=== PATIENT | female | born 1970 | race Caucasian/White ===

== ENCOUNTER 2019-06-29 21:01 | Inpatient (IN) | payer SELFPAY ==
[~2019-06-29] VITALS: Ht 170.2 cm; Wt 76.2 kg
[2019-06-29 21:43] LABS: BILIRUBIN,URINE NEGATIVE (NEG); CLARITY,URINE CLEAR; COLOR,URINE YELLOW; NITRITE,URINE NEGATIVE (NEG); PROTEIN,URINE NEGATIVE (NEG-TRACE); UROBILINOGEN,URINE 0.2 mg/dL (0.2 mg/dL)
[2019-06-29 21:52] LABS: BASO % 1 % (0-3); EOS # 0.1 x10^3/uL (0.0-0.7); EOS % 2 % (0-3); HEMATOCRIT 33.2 % (36.0-47.0); HEMOGLOBIN 10.8 g/dL (12.0-15.5); LYMPH % 17 % (24-48); MEAN CORPUSCULAR HEMOGLOBIN 30 pg (25-35); MEAN CORPUSCULAR HGB CONC 33 g/dL (31-37); MEAN CORPUSCULAR VOLUME 92 fL (79-100); MONO # 0.4 x10^3/uL (0.0-1.1); MONO % 8 % (0-9); NEUT # 4.2 x10^3/uL (1.8-7.7); NEUT % 73 % (31-73); PLATELET COUNT 302 x10^3/uL (140-400); RED BLOOD COUNT 3.62 x10^6/uL (3.50-5.40); RED CELL DISTRIBUTION WIDTH 16.4 % (11.5-14.5); WHITE BLOOD COUNT 5.8 x10^3/uL (4.0-11.0)
[2019-06-29 21:53] LABS: BACTERIA,URINE FEW /HPF (0-FEW); RBC,URINE 0 /HPF (0-2); SQUAMOUS EPITHELIAL CELL,UR MOD /LPF
--- NOTE | 2019-06-29 21:54 | PHYS DOC ---
Past Medical History Past Medical History: GI Bleed, Other Additional Past Medical Histor: GITELMAS SYNDROME, LOW P AND LOW MG, ULCERS, POTS Past Surgical History: Cholecystectomy, , Tubal ligation Additional Past Surgical Histo: J TUBE, OVARIAN CYSTS REMOVED, ACHALASIA Alcohol Use: None Drug Use: None Adult General Chief Complaint Chief Complaint: HEMATEMESIS/VOMITING BLOOD HPI HPI 49-year-old female presents to the emergency department with complaints of hematemesis was started approximately few hours prior to her arrival. She's been vomiting amol blood. States she has had some clots. She denies any history of GI bleed in the past. She has had some achalasia surgery in 2006. As any portal hypertension history. She has underlying gettleman's syndrome. Patient is of left upper quadrant abdominal pain. She denies any diarrhea, hematochezia, melena at this time. Patient denies any fever. Nothing makes her symptoms worse, nothing makes her symptoms better. Review of Systems Review of Systems Constitutional: Denies fever or chills [] Respiratory: Denies cough or shortness of breath [] Cardiovascular: No additional information not addressed in HPI [] GI: LUQ abdominal pain, nausea, vomiting, no bloody stools or diarrhea [] : Denies dysuria or hematuria [] Musculoskeletal: Denies back pain or joint pain [] Neurologic: Denies headache, focal weakness or sensory changes [] All other systems were reviewed and found to be within normal limits, except as documented in this note. Current Medications Current Medications Current Medications Medications (Trade) Dose Ordered Sig/Albin Start Time Stop Time Status Last Admin Dose Admin Ondansetron HCl (Zofran) 4 mg 1X ONCE 06/29/19 22:30 06/29/19 22:31 DC 06/29/19 22:11 4 MG Pantoprazole Sodium (PROTONIX VIAL for IV PUSH) 80 mg 1X ONCE 06/29/19 22:30 06/29/19 22:31 DC 06/29/19 22:11 80 MG Sodium Chloride 1,000 ml @ 1,000 mls/hr 1X ONCE 06/29/19 22:00 06/29/19 22:59 DC 06/29/19 22:11 1,000 MLS/HR Allergies Allergies Physical Exam Physical Exam Constitutional: Well developed, ill-appearing, pale. [] HENT: Normocephalic, atraumatic, bilateral external ears normal, oropharynx moist, no oral exudates, nose normal. [] Eyes: PERRLA, EOMI, conjunctiva normal, no discharge. [] Cardiovascular: Tachycardia Lungs & Thorax: Bilateral breath sounds clear to auscultation [] Abdomen: Bowel sounds normal, soft, no tenderness, no masses, no pulsatile masses. [] Skin: Warm, dry, no erythema, no rash. [] Back: No tenderness, no CVA tenderness. [] Extremities: No tenderness, no edema. [] Neurologic: Alert and oriented X 3, no focal deficits noted. [] Psychologic: Affect normal, judgement normal, mood normal. [] Current Patient Data Vital Signs Vital Signs Date Time Temp Pulse Resp B/P (MAP) Pulse Ox O2 Delivery O2 Flow Rate FiO2 06/29/19 22:28 Room Air 06/29/19 22:27 92 121/76 (91) 98 06/29/19 21:19 98.2 14 98.2 Lab Values Laboratory Tests Test 06/29/19 21:36 06/29/19 21:45 06/29/19 22:30 Urine Collection Type Void Urine Color Yellow Urine Clarity Clear Urine pH 7.0 Urine Specific [place] 1.020 Urine Protein Negative mg/dL (NEG-TRACE) Urine Glucose (UA) Negative mg/dL (NEG) Urine Ketones (Stick) Negative mg/dL (NEG) Urine Blood Negative (NEG) Urine Nitrite Negative (NEG) Urine Bilirubin Negative (NEG) Urine Urobilinogen Dipstick 0.2 mg/dL (0.2 mg/dL) Urine Leukocyte Esterase Moderate (NEG) Urine RBC 0 /HPF (0-2) Urine WBC 5-10 /HPF (0-4) Urine Squamous Epithelial Cells Mod /LPF Urine Bacteria Few /HPF (0-FEW) Urine Mucus Slight /LPF White Blood Count 5.8 x10^3/uL (4.0-11.0) Red Blood Count 3.62 x10^6/uL (3.50-5.40) Hemoglobin 10.8 g/dL (12.0-15.5) L Hematocrit 33.2 % (36.0-47.0) L Mean Corpuscular Volume 92 fL (79-100) Mean Corpuscular Hemoglobin 30 pg (25-35) Mean Corpuscular Hemoglobin Concent 33 g/dL (31-37) Red Cell Distribution Width 16.4 % (11.5-14.5) H Platelet Count 302 x10^3/uL (140-400) Neutrophils (%) (Auto) 73 % (31-73) Lymphocytes (%) (Auto) 17 % (24-48) L Monocytes (%) (Auto) 8 % (0-9) Eosinophils (%) (Auto) 2 % (0-3) Basophils (%) (Auto) 1 % (0-3) Neutrophils # (Auto) 4.2 x10^3/uL (1.8-7.7) Lymphocytes # (Auto) 1.0 x10^3/uL (1.0-4.8) Monocytes # (Auto) 0.4 x10^3/uL (0.0-1.1) Eosinophils # (Auto) 0.1 x10^3/uL (0.0-0.7) Basophils # (Auto) 0.0 x10^3/uL (0.0-0.2) Sodium Level 139 mmol/L (136-145) Potassium Level 3.4 mmol/L (3.5-5.1) L Chloride Level 101 mmol/L (98-107) Carbon Dioxide Level 31 mmol/L (21-32) Anion Gap 7 (6-14) Blood Urea Nitrogen 15 mg/dL (7-20) Creatinine 0.8 mg/dL (0.6-1.0) Estimated GFR (Cockcroft-Gault) 76.9 BUN/Creatinine Ratio 19 (6-20) Glucose Level 114 mg/dL (70-99) H Calcium Level 9.0 mg/dL (8.5-10.1) Total Bilirubin 0.1 mg/dL (0.2-1.0) L Aspartate Amino Transferase (AST) 16 U/L (15-37) Alanine Aminotransferase (ALT) 18 U/L (14-59) Alkaline Phosphatase 77 U/L (46-116) Total Protein 7.0 g/dL (6.4-8.2) Albumin 3.6 g/dL (3.4-5.0) Albumin/Globulin Ratio 1.1 (1.0-1.7) Gastric Fluid Occult Blood Positive (NEG) Laboratory Tests 06/29/19 21:45 Laboratory Tests 06/29/19 21:45 Microbiology 06/29/19 Urine Culture - Final, Complete 06/29/19 Urine Culture Result 1 (GEORGI) - Final, Complete EKG EKG [] Radiology/Procedures Radiology/Procedures [facility] [address] [place] [address] IMAGING REPORT Signed PATIENT: PATRICK MORTENSEN ACCOUNT: [id number] : 1970 LOCATION: ER AGE: 49 SEX: F EXAM STATUS: REG ER ORD. PHYSICIAN: JOHNATHON CHIN MD REASON: left upper quadrant pain, active hematemesis, allergy to contrast PROCEDURE: CT ABDOMEN PELVIS WO CONTRAST Examination: CT of the abdomen pelvis without contrast HISTORY: History of left upper quadrant abdominal pain COMPARISON: None available TECHNIQUE: Axial CT images of the abdomen pelvis were performed without contrast. Coronal and sagittal reformats are performed Exposure: One or more of the following individualized dose reduction techniques were utilized for this examination: 1. Automated exposure control 2. Adjustment of the mA and/or kV according to patient size 3. Use of iterative reconstruction technique FINDINGS: The bibasilar lungs are clear. No evidence of free air identified in the abdomen. The evaluation of the solid organs is limited due to lack of IV contrast. The evaluation of bowel is limited due to lack of oral contrast. The visualized noncontrasted liver, spleen, adrenals grossly appears unremarkable. Cholecystectomy clips identified. Metallic coils and surgical clips identified in the epigastric region and within the stomach. The stomach is mildly distended with food material. The small bowel is nondilated. Feces and gas noted in the colon. There are multiple round hyperdensities identified in the bilateral kidneys with the largest measuring 2 cm in the right kidney. Urinary bladder is mildly distended. Enlarged appearing right adnexa could be enlarged right ovary measuring 4 cm. IVC filter is identified. Moderate degenerative changes lumbar spine most at L3-L4 vertebral level. IMPRESSION: 1. Enlarged appearing right adnexa probably enlarged appearing right ovary. Follow-up ultrasound pelvis can be considered. 2. Multiple round hyperdensities identified in the bilateral kidneys the largest measuring 2 cm in the right kidney could be hyperdense masses or cysts. Follow-up nonemergent ultrasound can be considered. Electronically signed by: Talon Whelan MD (06/29/2019 11:17 PM) [facility] DICTATED and SIGNED BY: TALON WHELAN MD DATE: 06/29/19 2317 [] Course & Med Decision Making Course & Med Decision Making Pertinent Labs and Imaging studies reviewed. (See chart for details) []49-year-old female presents to the emergency department with complaints of hematemesis was started approximately few hours prior to her arrival. She's been vomiting amol blood. States she has had some clots. She denies any history of GI bleed in the past. She has had some achalasia surgery in 2006. As any portal hypertension history. She has underlying gettleman's syndrome. Patient is of l eft upper quadrant abdominal pain. She denies any diarrhea, hematochezia, melena at this time. Patient denies any fever. Nothing makes her symptoms worse, nothing makes her symptoms better. Labs/imaging reviewed IVF, Zofran, Dilaudid provided in ER for acute symptoms Patient with active hematemesis Protonix bolus with drip initiated in the ER GI consult - discussed with Dr. Dan regarding patient and acute admission VS stable will plan admit to ICU given active hematemesis. CT reviewed - no acute findings appreciated however this was done without contrast given allergy Dragon Disclaimer Dragon Disclaimer This electronic medical record was generated, in whole or in part, using a voice recognition dictation system. Departure Departure Impression: Primary Impression: Acute upper GI bleed Additional Impressions: Abdominal pain Anemia Disposition: ADMITTED INPATIENT Admitting Physician: PHILL Condition: STABLE Critical Care Time Critical care time was 35 minutes exclusive of procedures. Problem Qualifiers Additional Impressions: Abdominal pain Abdominal location: left upper quadrant Qualified Codes: R10.12 - Left upper quadrant pain Anemia Anemia type: unspecified type Qualified Codes: D64.9 - Anemia, unspecified JOHNATHON CHIN MD Jun 29, 2019 21:54
[2019-06-29] MEDS ORDERED: IV NORMAL SALINE 1000ML BAG 1,000 ML IV ONE (22:00)
[2019-06-29 22:01] LABS: CREATININE 0.8 mg/dL (0.6-1.0); GFR 76.9; POTASSIUM 3.4 mmol/L (3.5-5.1)
[2019-06-29 22:06] LABS: ALBUMIN 3.6 g/dL (3.4-5.0); ALBUMIN/GLOBULIN RATIO 1.1 (1.0-1.7); TOTAL BILIRUBIN 0.1 mg/dL (0.2-1.0)
[2019-06-29] MEDS: PANTOPRAZOLE SODIUM IV DRIP 80 MG in IV NORMAL SALINE 100ML 100 ML IV SCH (22:11)
[2019-06-29] MEDS ORDERED: ONDANSETRON PF 4 MG/2 ML VIAL. IV ONE (22:30)
[2019-06-29] MEDS ORDERED: PANTOPRAZOLE IV PUSH 40 MG VIAL. IVP ONE (22:30)
[2019-06-29 22:37] LABS: GASTRIC OB PAT POSITIVE (NEG)
[2019-06-29] MEDS ORDERED: HYDROmorphone 2 MG/ML VIAL IV ONE (23:00)
--- NOTE | 2019-06-29 23:20 | RAD ---
Examination: CT of the abdomen pelvis without contrast HISTORY: History of left upper quadrant abdominal pain COMPARISON: None available TECHNIQUE: Axial CT images of the abdomen pelvis were performed without contrast. Coronal and sagittal reformats are performed Exposure: One or more of the following individualized dose reduction techniques were utilized for this examination: 1. Automated exposure control 2. Adjustment of the mA and/or kV according to patient size 3. Use of iterative reconstruction technique FINDINGS: The bibasilar lungs are clear. No evidence of free air identified in the abdomen. The evaluation of the solid organs is limited due to lack of IV contrast. The evaluation of bowel is limited due to lack of oral contrast. The visualized noncontrasted liver, spleen, adrenals grossly appears unremarkable. Cholecystectomy clips identified. Metallic coils and surgical clips identified in the epigastric region and within the stomach. The stomach is mildly distended with food material. The small bowel is nondilated. Feces and gas noted in the colon. There are multiple round hyperdensities identified in the bilateral kidneys with the largest measuring 2 cm in the right kidney. Urinary bladder is mildly distended. Enlarged appearing right adnexa could be enlarged right ovary measuring 4 cm. IVC filter is identified. Moderate degenerative changes lumbar spine most at L3-L4 vertebral level. IMPRESSION: 1. Enlarged appearing right adnexa probably enlarged appearing right ovary. Follow-up ultrasound pelvis can be considered. 2. Multiple round hyperdensities identified in the bilateral kidneys the largest measuring 2 cm in the right kidney could be hyperdense masses or cysts. Follow-up nonemergent ultrasound can be considered. Electronically signed by: Talon Whelan MD (06/29/2019 11:17 PM) [facility]
[2019-06-30] VITALS (14 sets, daily range): BP systolic 92–147; BP diastolic 55–80
[2019-06-30] MEDS ORDERED: ONDANSETRON PF 4 MG/2 ML VIAL. IV ONE (01:00)
[2019-06-30] MEDS ORDERED: HYDROmorphone 2 MG/ML VIAL IV ONE (01:00)
[2019-06-30] MEDS ORDERED: IV NORMAL SALINE 1000ML BAG 1,000 ML IV ONE (01:30)
[2019-06-30] MEDS: HYDROmorphone 2 MG/ML VIAL IV PRN ×8 (02:41→22:59)
--- NOTE | 2019-06-30 05:31 | EKG ---
[facility] [address] [place] [address] Test Date: 2019-06-29 Test Time: 22:00:36 Pat Name: PATRICK MORTENSEN Department: Room: Gender: F [employer]: : 1970 Requested By: JOHNATHON CHIN Order Number: [id number] Reading MD: Measurements Intervals [place] Rate: 101 P: 67 LA: 172 QRS: 26 QRSD: 78 T: 99 QT: 396 QTc: 514 Interpretive Statements SINUS TACHYCARDIA NON SPECIFIC T ABNORMALITY BORDERLINE ECG No previous ECG available for comparison
[2019-06-30] MEDS: ONDANSETRON PF 4 MG/2 ML VIAL. IV PRN ×3 (07:21→22:48)
[2019-06-30] MEDS ORDERED: SERT100T PO (08:44)
[2019-06-30] MEDS ORDERED: SUCR1TAB35 PO (08:44)
[2019-06-30] MEDS ORDERED: ROPI3TAB PO (08:44)
[2019-06-30] MEDS ORDERED: POTA10TA6 PO (08:44)
[2019-06-30] MEDS ORDERED: MAGN500C10 PO (08:44)
[2019-06-30] MEDS ORDERED: LEVE100020 PO (08:44)
[2019-06-30] MEDS ORDERED: FAMO-63 PO (08:44)
--- NOTE | 2019-06-30 08:53 | PDOC2 ---
PAGE HOPPER 06/30/19 0853: GI CONSULT Reason For Consult: UGIB HPI: HPI: 49 y/o female w/ extreme LUQ pain (constant - waxes and wanes in severity) since Friday and hematemesis since yesterday afternoon. Hgb 10.8 w/ BUN 15. CT as below. Similar symptoms in summer 2018 while vacationing in [place] - reports EGD w/ oozing ulcer requiring endoscopic clipping and IR coiling, also required transfusion. H/o terrible indigestion twice monthly w/ occasional vomiting, lots of belching, and terrible back pressure that makes her cry. Has been on Pepcid BID and Carafate TID for awhile (even before episode in [place]) and has "tried everything else" without good response. Also, about three years ago while traveling in [place], had what sounds like a Casandra-Bates tear. GI history also significant for achalasia w/ Heller myotomy in 2005 in [place] w/ complicated post-op course w/ weight loss of 100 pounds requiring J tube p lacement. Additional h/o pancreatitis x 3 without clear etiology. All episodes occurred after cholecystectomy. Denies dysphagia/odynophagia, diarrhea, constipation, hematochezia, and melena. Has lost ~10 pounds since bleeding episode over the summer. Had colonoscopy several years ago w/ polyps. No liver history. No NSAIDs. 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), PE (several years later - saw hematology, unclear cause), ovarian cysts, GERD, achalasia, GI bleed , tubal ligation, J tube placement, Heller myotomy, IVC filter, cholecystectomy, ovarian cyst removal FH: Family History: No pertinent hx (denies GI cancers) Social History: Smoke: No ALCOHOL: none Drugs: None ROS: GEN: Denies fevers, chills, sweats HEENT: Denies blurred vision, sore throat CV: Denies chest pain RESP: Denies shortness of air, cough GI: Per HPI : Denies hematuria, dysuria ENDO: +weight loss NEURO: Denies confusion, dizziness MSK: Denies weakness, joint pain/swelling SKIN: Denies jaundice, pruritus Vitals: Vitals: Vital Signs Date Time Temp Pulse Resp B/P (MAP) Pulse Ox O2 Delivery O2 Flow Rate FiO2 06/30/19 08:23 97.6 73 20 99 97.6 06/30/19 07:22 Room Air 06/30/19 06:53 129/64 (85) Labs: Labs: Laboratory Tests Test 06/29/19 21:36 06/29/19 21:45 06/29/19 22:30 Urine Collection Type Void Urine Color Yellow Urine Clarity Clear Urine pH 7.0 Urine Specific [place] 1.020 Urine Protein Negative mg/dL (NEG-TRACE) Urine Glucose (UA) Negative mg/dL (NEG) Urine Ketones (Stick) Negative mg/dL (NEG) Urine Blood Negative (NEG) Urine Nitrite Negative (NEG) Urine Bilirubin Negative (NEG) Urine Urobilinogen Dipstick 0.2 mg/dL (0.2 mg/dL) Urine Leukocyte Esterase Moderate (NEG) Urine RBC 0 /HPF (0-2) Urine WBC 5-10 /HPF (0-4) Urine Squamous Epithelial Cells Mod /LPF Urine Bacteria Few /HPF (0-FEW) Urine Mucus Slight /LPF White Blood Count 5.8 x10^3/uL (4.0-11.0) Red Blood Count 3.62 x10^6/uL (3.50-5.40) Hemoglobin 10.8 g/dL (12.0-15.5) Hematocrit 33.2 % (36.0-47.0) Mean Corpuscular Volume 92 fL (79-100) Mean Corpuscular Hemoglobin 30 pg (25-35) Mean Corpuscular Hemoglobin Concent 33 g/dL (31-37) Red Cell Distribution Width 16.4 % (11.5-14.5) Platelet Count 302 x10^3/uL (140-400) Neutrophils (%) (Auto) 73 % (31-73) Lymphocytes (%) (Auto) 17 % (24-48) Monocytes (%) (Auto) 8 % (0-9) Eosinophils (%) (Auto) 2 % (0-3) Basophils (%) (Auto) 1 % (0-3) Neutrophils # (Auto) 4.2 x10^3/uL (1.8-7.7) Lymphocytes # (Auto) 1.0 x10^3/uL (1.0-4.8) Monocytes # (Auto) 0.4 x10^3/uL (0.0-1.1) Eosinophils # (Auto) 0.1 x10^3/uL (0.0-0.7) Basophils # (Auto) 0.0 x10^3/uL (0.0-0.2) Sodium Level 139 mmol/L (136-145) Potassium Level 3.4 mmol/L (3.5-5.1) Chloride Level 101 mmol/L (98-107) Carbon Dioxide Level 31 mmol/L (21-32) Anion Gap 7 (6-14) Blood Urea Nitrogen 15 mg/dL (7-20) Creatinine 0.8 mg/dL (0.6-1.0) Estimated GFR (Cockcroft-Gault) 76.9 BUN/Creatinine Ratio 19 (6-20) Glucose Level 114 mg/dL (70-99) Calcium Level 9.0 mg/dL (8.5-10.1) Total Bilirubin 0.1 mg/dL (0.2-1.0) Aspartate Amino Transf (AST/SGOT) 16 U/L (15-37) Alanine Aminotransferase (ALT/SGPT) 18 U/L (14-59) Alkaline Phosphatase 77 U/L (46-116) Total Protein 7.0 g/dL (6.4-8.2) Albumin 3.6 g/dL (3.4-5.0) Albumin/Globulin Ratio 1.1 (1.0-1.7) Gastric Fluid Occult Blood Positive (NEG) Allergies: Coded Allergies: Iodinated Contrast Media (Verified Allergy, Severe, 06/30/19) NSAIDS (Non-Steroidal Anti-Inflamma (Verified Allergy, Intermediate, 06/30/19) Sulfa (Sulfonamide Antibiotics) (Verified Allergy, Intermediate, 06/30/19) adhesive (Verified Allergy, Intermediate, 06/30/19) ketorolac (Verified Allergy, Intermediate, 06/30/19) metoclopramide (Verified Allergy, Intermediate, 06/30/19) morphine (Verified Allergy, Intermediate, 06/30/19) prochlorperazine (Verified Allergy, Intermediate, 06/30/19) Medications: Current Medications Medications (Trade) Dose Ordered Sig/Albin Route PRN Reason Start Time Stop Time Status Last Admin Dose Admin Sodium Chloride 1,000 ml @ 1,000 mls/hr 1X ONCE IV 06/29/19 22:00 06/29/19 22:59 DC 06/29/19 22:11 Pantoprazole Sodium 80 mg/ Sodium Chloride 100 ml @ 10 mls/hr Q10H IV 06/29/19 23:00 06/29/19 22:11 Pantoprazole Sodium (PROTONIX VIAL for IV PUSH) 80 mg 1X ONCE IVP 06/29/19 22:30 06/29/19 22:31 DC 06/29/19 22:11 Ondansetron HCl (Zofran) 4 mg 1X ONCE IV 06/29/19 22:30 06/29/19 22:31 DC 06/29/19 22:11 Hydromorphone HCl (Dilaudid) 1 mg 1X ONCE IV 06/29/19 23:00 06/29/19 23:01 DC 06/29/19 22:28 Hydromorphone HCl (Dilaudid) 1 mg 1X ONCE IV 06/30/19 01:00 06/30/19 01:01 DC 06/30/19 00:33 Ondansetron HCl (Zofran) 4 mg 1X ONCE IV 06/30/19 01:00 06/30/19 01:01 DC 06/30/19 00:33 Ondansetron HCl (Zofran) 4 mg PRN Q8HRS PRN IV NAUSEA/VOMITING 1ST CHOICE 06/30/19 01:00 07/01/19 00:59 06/30/19 07:21 Sodium Chloride 1,000 ml @ 100 mls/hr 1X ONCE IV 06/30/19 01:30 06/30/19 11:29 06/30/19 01:30 Hydromorphone HCl (Dilaudid) 1 mg PRN Q4HRS PRN IV SEVERE PAIN 7-10 06/30/19 01:15 06/30/19 07:22 Imaging: Imaging: CT A/P w/o contrast FINDINGS: The bibasilar lungs are clear. No evidence of free air identified in the abdomen. The evaluation of the solid organs is limited due to lack of IV contrast. The evaluation of bowel is limited due to lack of oral contrast. The visualized noncontrasted liver, spleen, adrenals grossly appears unremarkable. Cholecystectomy clips identified. Metallic coils and surgical clips identified in the epigastric region and within the stomach. The stomach is mildly distended with food material. The small bowel is nondilated. Feces and gas noted in the colon. There are multiple round hyperdensities identified in the bilateral kidneys with the largest measuring 2 cm in the right kidney. Urinary bladder is mildly distended. Enlarged appearing right adnexa could be enlarged right ovary measuring 4 cm. IVC filter is identified. Moderate degenerative changes lumbar spine most at L3- L4 vertebral level. IMPRESSION: 1. Enlarged appearing right adnexa probably enlarged appearing right ovary. Follow-up ultrasound pelvis can be considered. 2. Multiple round hyperdensities identified in the bilateral kidneys the largest measuring 2 cm in the right kidney could be hyperdense masses or cysts. Follow- up nonemergent ultrasound can be considered. PE: GEN: NAD HEENT: Atraumatic, PERRL LUNGS: CTAB HEART: RRR ABD: NABS, S/ND, epigastric to LUQ tenderness under ribs EXTREMITY: No edema SKIN: No rashes, no jaundice NEURO/PSYCH: A & O 3 A/P: A/P: Hematemesis H/o UGI bleed requiring endotherapy and IR coiling GERD H/o achalasia s/p Heller myotomy, h/o J tube placement/removal CRC screen, h/o polyps - UTD S/p cholecystectomy H/o pancreatitis - unclear etiology -- Plans for EGD this morning. Agree w/ PPI. Additional recs pending. WILLARD KHAN MD 06/30/19 0920: PAGE HOPPER Jun 30, 2019 08:53 WILLARD KHAN MD Jun 30, 2019 09:20
[2019-06-30] MEDS ORDERED: PROPOFOL 20 ML IV ONE (09:13)
--- NOTE | 2019-06-30 09:44 | PDOC1 ---
History and Physical Date of Admission Date of Admission DATE: 06/30/19 TIME: 09:42 Identification/Chief Complaint Chief Complaint 49 yr old female from [facility], VISITING HER presented to the emergency department with complaints of hematemesis was started approximately few hours prior to her arrival. She's been vomiting amol blood. States she has had some clots. PAIN HAS BEEN WORSE X 1 WEEK, achalasia surgery in 2006. As any portal hypertension history. Patient is of left upper quadrant abdominal pain. She denies any diarrhea, hematochezia, melena at this time. Patient denies any fever. ADMITTED TO ICU Enlarged appearing right adnexa could be enlarged right ovary measuring 4 cm. 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), PE FH: Family History: No pertinent hx (denies GI cancers) Social History: Smoke: No ALCOHOL: none Drugs: None Family History Family History: Hypertension Social History Smoke: No ALCOHOL: none Drugs: None Current Medications Current Medications Current Medications Sodium Chloride 1,000 ml @ 1,000 mls/hr 1X ONCE IV Last administered on 06/29/19at 22:11; Start 06/29/19 at 22:00; Stop 06/29/19 at 22:59; Status DC Pantoprazole Sodium 80 mg/ Sodium Chloride 100 ml @ 10 mls/hr Q10H IV Last administered on 06/29/19at 22:11; Start 06/29/19 at 23:00 Pantoprazole Sodium (PROTONIX VIAL for IV PUSH) 80 mg 1X ONCE IVP Last administered on 06/29/19at 22:11; Start 06/29/19 at 22:30; Stop 06/29/19 at 22:31; Status DC Ondansetron HCl (Zofran) 4 mg 1X ONCE IV Last administered on 06/29/19at 22:11; Start 06/29/19 at 22:30; Stop 06/29/19 at 22:31; Status DC Hydromorphone HCl (Dilaudid) 1 mg 1X ONCE IV Last administered on 06/29/19at 22:28; Start 06/29/19 at 23:00; Stop 06/29/19 at 23:01; Status DC Hydromorphone HCl (Dilaudid) 1 mg 1X ONCE IV Last administered on 06/30/19at 00:33; Start 06/30/19 at 01:00; Stop 06/30/19 at 01:01; Status DC Ondansetron HCl (Zofran) 4 mg 1X ONCE IV Last administered on 06/30/19at 00:33; Start 06/30/19 at 01:00; Stop 06/30/19 at 01:01; Status DC Ondansetron HCl (Zofran) 4 mg PRN Q8HRS PRN IV NAUSEA/VOMITING 1ST CHOICE Last administered on 06/30/19at 07:21; Start 06/30/19 at 01:00; Stop 07/01/19 at 00:59 Sodium Chloride 1,000 ml @ 100 mls/hr 1X ONCE IV Last administered on 06/30/19at 01:30; Start 06/30/19 at 01:30; Stop 06/30/19 at 11:29 Hydromorphone HCl (Dilaudid) 1 mg PRN Q4HRS PRN IV SEVERE PAIN 7-10 Last administered on 06/30/19at 07:22; Start 06/30/19 at 01:15 Propofol 20 ml @ As Directed STK-MED ONCE IV ; Start 06/30/19 at 09:13; Stop 06/30/19 at 09:14; Status DC Active Scripts Active Reported Zoloft (Sertraline Hcl) 100 Mg Tablet 150 Mg PO DAILY Requip (Ropinirole Hcl) 3 Mg Tablet 2 Mg PO TID Carafate (Sucralfate) 1 Gm Tablet 1 Gm PO TID Pepcid (Famotidine) 20 Mg Tablet 20 Mg PO BID Keppra (Levetiracetam) 1,000 Mg Tablet 1,000 Mg PO BID Magnesium (Magnesium Oxide) 500 Mg Capsule 800 Mg PO TID Klor-Con 10 (Potassium Chloride) 10 Meq Tablet.er 40 Meq PO BID Allergies Allergies: Coded Allergies: Iodinated Contrast Media (Verified Allergy, Severe, 06/30/19) NSAIDS (Non-Steroidal Anti-Inflamma (Verified Allergy, Intermediate, 06/30/19) Sulfa (Sulfonamide Antibiotics) (Verified Allergy, Intermediate, 06/30/19) adhesive (Verified Allergy, Intermediate, 06/30/19) ketorolac (Verified Allergy, Intermediate, 06/30/19) metoclopramide (Verified Allergy, Intermediate, 06/30/19) morphine (Verified Allergy, Intermediate, 06/30/19) prochlorperazine (Verified Allergy, Intermediate, 06/30/19) ROS Review of System Review of Systems Review of Systems Constitutional: Denies fever or chills [] Respiratory: Denies cough or shortness of breath [] Cardiovascular: No additional information not addressed in HPI [] GI: LUQ abdominal pain, nausea, vomiting, no bloody stools or diarrhea [] : Denies dysuria or hematuria [] Musculoskeletal: Denies back pain or joint pain [] Neurologic: Denies headache, focal weakness or sensory changes [] 14 PT systems were reviewed and found to be within normal limits, except as documented Respiratory: No: Cough, Hemoptysis, Orthopnea, Pleuritic Pain, Shortness of breath, SOB with excertion, Sputum Changes, Stridor, Tachypnea, Wheezing, Other Cardiovascular: No Chest Pain, No Palpitations, No Orthopnea, No Paroxysmal Noc. Dyspnea, No Edema, No Lt Headedness, No Other Gastrointestinal: Yes Vomiting, Yes Abdominal Pain Physical Exam Physical Exam Physical Exam Physical Exam Constitutional: Well developed, ill-appearing, pale. [] HENT: Normocephalic, atraumatic, bilateral external ears normal, oropharynx moist, no oral exudates, nose normal. [] Eyes: PERRLA, EOMI, conjunctiva normal, no discharge. [] Cardiovascular: Tachycardia Lungs & Thorax: Bilateral breath sounds clear to auscultation [] Abdomen: Bowel sounds normal, soft, no tenderness, no masses, no pulsatile masses. [] Skin: Warm, dry, no erythema, no rash. [] Back: No tenderness, no CVA tenderness. [] Extremities: No tenderness, no edema. [] Neurologic: Alert and oriented X 3, no focal deficits noted. [] Psychologic: Affect normal, judgement normal, mood normal. [] General: Alert, Oriented X3, Cooperative, moderate distress HEENT: Atraumatic, EOMI Lungs: Clear to auscultation, Normal air movement Heart: RRR, no gallops Breasts: Not examined Abdomen: Other (TENDER WITHOUT REBOUND ) Rectal Exam: not examined Extremities: No cyanosis Neuro: Normal speech, Cranial nerves 3-12 NL Psych/Mental Status: Mental status NL, Mood NL Vitals Vitals Vital Signs Date Time Temp Pulse Resp B/P (MAP) Pulse Ox O2 Delivery O2 Flow Rate FiO2 06/30/19 09:37 97.6 79 16 98/64 96 Nasal Cannula 97.6 Labs Labs Laboratory Tests Test 06/29/19 21:36 06/29/19 21:45 06/29/19 22:30 Urine Collection Type Void Urine Color Yellow Urine Clarity Clear Urine pH 7.0 Urine Specific [place] 1.020 Urine Protein Negative mg/dL (NEG-TRACE) Urine Glucose (UA) Negative mg/dL (NEG) Urine Ketones (Stick) Negative mg/dL (NEG) Urine Blood Negative (NEG) Urine Nitrite Negative (NEG) Urine Bilirubin Negative (NEG) Urine Urobilinogen Dipstick 0.2 mg/dL (0.2 mg/dL) Urine Leukocyte Esterase Moderate (NEG) Urine RBC 0 /HPF (0-2) Urine WBC 5-10 /HPF (0-4) Urine Squamous Epithelial Cells Mod /LPF Urine Bacteria Few /HPF (0-FEW) Urine Mucus Slight /LPF White Blood Count 5.8 x10^3/uL (4.0-11.0) Red Blood Count 3.62 x10^6/uL (3.50-5.40) Hemoglobin 10.8 g/dL (12.0-15.5) Hematocrit 33.2 % (36.0-47.0) Mean Corpuscular Volume 92 fL (79-100) Mean Corpuscular Hemoglobin 30 pg (25-35) Mean Corpuscular Hemoglobin Concent 33 g/dL (31-37) Red Cell Distribution Width 16.4 % (11.5-14.5) Platelet Count 302 x10^3/uL (140-400) Neutrophils (%) (Auto) 73 % (31-73) Lymphocytes (%) (Auto) 17 % (24-48) Monocytes (%) (Auto) 8 % (0-9) Eosinophils (%) (Auto) 2 % (0-3) Basophils (%) (Auto) 1 % (0-3) Neutrophils # (Auto) 4.2 x10^3/uL (1.8-7.7) Lymphocytes # (Auto) 1.0 x10^3/uL (1.0-4.8) Monocytes # (Auto) 0.4 x10^3/uL (0.0-1.1) Eosinophils # (Auto) 0.1 x10^3/uL (0.0-0.7) Basophils # (Auto) 0.0 x10^3/uL (0.0-0.2) Sodium Level 139 mmol/L (136-145) Potassium Level 3.4 mmol/L (3.5-5.1) Chloride Level 101 mmol/L (98-107) Carbon Dioxide Level 31 mmol/L (21-32) Anion Gap 7 (6-14) Blood Urea Nitrogen 15 mg/dL (7-20) Creatinine 0.8 mg/dL (0.6-1.0) Estimated GFR (Cockcroft-Gault) 76.9 BUN/Creatinine Ratio 19 (6-20) Glucose Level 114 mg/dL (70-99) Calcium Level 9.0 mg/dL (8.5-10.1) Total Bilirubin 0.1 mg/dL (0.2-1.0) Aspartate Amino Transf (AST/SGOT) 16 U/L (15-37) Alanine Aminotransferase (ALT/SGPT) 18 U/L (14-59) Alkaline Phosphatase 77 U/L (46-116) Total Protein 7.0 g/dL (6.4-8.2) Albumin 3.6 g/dL (3.4-5.0) Albumin/Globulin Ratio 1.1 (1.0-1.7) Gastric Fluid Occult Blood Positive (NEG) Laboratory Tests Test 06/29/19 21:36 06/29/19 21:45 06/29/19 22:30 Urine Collection Type Void Urine Color Yellow Urine Clarity Clear Urine pH 7.0 Urine Specific [place] 1.020 Urine Protein Negative mg/dL (NEG-TRACE) Urine Glucose (UA) Negative mg/dL (NEG) Urine Ketones (Stick) Negative mg/dL (NEG) Urine Blood Negative (NEG) Urine Nitrite Negative (NEG) Urine Bilirubin Negative (NEG) Urine Urobilinogen Dipstick 0.2 mg/dL (0.2 mg/dL) Urine Leukocyte Esterase Moderate (NEG) Urine RBC 0 /HPF (0-2) Urine WBC 5-10 /HPF (0-4) Urine Squamous Epithelial Cells Mod /LPF Urine Bacteria Few /HPF (0-FEW) Urine Mucus Slight /LPF White Blood Count 5.8 x10^3/uL (4.0-11.0) Red Blood Count 3.62 x10^6/uL (3.50-5.40) Hemoglobin 10.8 g/dL (12.0-15.5) Hematocrit 33.2 % (36.0-47.0) Mean Corpuscular Volume 92 fL (79-100) Mean Corpuscular Hemoglobin 30 pg (25-35) Mean Corpuscular Hemoglobin Concent 33 g/dL (31-37) Red Cell Distribution Width 16.4 % (11.5-14.5) Platelet Count 302 x10^3/uL (140-400) Neutrophils (%) (Auto) 73 % (31-73) Lymphocytes (%) (Auto) 17 % (24-48) Monocytes (%) (Auto) 8 % (0-9) Eosinophils (%) (Auto) 2 % (0-3) Basophils (%) (Auto) 1 % (0-3) Neutrophils # (Auto) 4.2 x10^3/uL (1.8-7.7) Lymphocytes # (Auto) 1.0 x10^3/uL (1.0-4.8) Monocytes # (Auto) 0.4 x10^3/uL (0.0-1.1) Eosinophils # (Auto) 0.1 x10^3/uL (0.0-0.7) Basophils # (Auto) 0.0 x10^3/uL (0.0-0.2) Sodium Level 139 mmol/L (136-145) Potassium Level 3.4 mmol/L (3.5-5.1) Chloride Level 101 mmol/L (98-107) Carbon Dioxide Level 31 mmol/L (21-32) Anion Gap 7 (6-14) Blood Urea Nitrogen 15 mg/dL (7-20) Creatinine 0.8 mg/dL (0.6-1.0) Estimated GFR (Cockcroft-Gault) 76.9 BUN/Creatinine Ratio 19 (6-20) Glucose Level 114 mg/dL (70-99) Calcium Level 9.0 mg/dL (8.5-10.1) Total Bilirubin 0.1 mg/dL (0.2-1.0) Aspartate Amino Transf (AST/SGOT) 16 U/L (15-37) Alanine Aminotransferase (ALT/SGPT) 18 U/L (14-59) Alkaline Phosphatase 77 U/L (46-116) Total Protein 7.0 g/dL (6.4-8.2) Albumin 3.6 g/dL (3.4-5.0) Albumin/Globulin Ratio 1.1 (1.0-1.7) Gastric Fluid Occult Blood Positive (NEG) Images Images Signed PATIENT: PATRICK MORTENSEN ACCOUNT: [id number] : 1970 LOCATION: ER AGE: 49 SEX: F EXAM STATUS: REG ER ORD. PHYSICIAN: JOHNATHON CHIN MD REASON: left upper quadrant pain, active hematemesis, allergy to contrast PROCEDURE: CT ABDOMEN PELVIS WO CONTRAST Examination: CT of the abdomen pelvis without contrast HISTORY: History of left upper quadrant abdominal pain COMPARISON: None available TECHNIQUE: Axial CT images of the abdomen pelvis were performed without contrast. Coronal and sagittal reformats are performed Exposure: One or more of the following individualized dose reduction techniques were utilized for this examination: 1. Automated exposure control 2. Adjustment of the mA and/or kV according to patient size 3. Use of iterative reconstruction technique FINDINGS: The bibasilar lungs are clear. No evidence of free air identified in the abdomen. The evaluation of the solid organs is limited due to lack of IV contrast. The evaluation of bowel is limited due to lack of oral contrast. The visualized noncontrasted liver, spleen, adrenals grossly appears unremarkable. Cholecystectomy clips identified. Metallic coils and surgical clips identified in the epigastric region and within the stomach. The stomach is mildly distended with food material. The small bowel is nondilated. Feces and gas noted in the colon. There are multiple round hyperdensities identified in the bilateral kidneys with the largest measuring 2 cm in the right kidney. Urinary bladder is mildly distended. Enlarged appearing right adnexa could be enlarged right ovary measuring 4 cm. IVC filter is identified. Moderate degenerative changes lumbar spine most at L3-L4 vertebral level. IMPRESSION: 1. Enlarged appearing right adnexa probably enlarged appearing right ovary. Follow-up ultrasound pelvis can be considered. 2. Multiple round hyperdensities identified in the bilateral kidneys the largest measuring 2 cm in the right kidney could be hyperdense masses or cysts. Follow-up nonemergent ultrasound can be considered. Electronically signed by: Talon Whelan MD (06/29/2019 11:17 PM) [facility] DICTATED and SIGNED BY: TALON WHELAN MD DATE: 06/29/19 9561 VTE Prophylaxis Ordered VTE Prophylaxis Devices: Yes VTE Pharmacological Prophylaxi: Contraindicated Assessment/Plan Assessment/Plan IMPRESSION: acute upper gi bleed hx 2019 EGD w/ oozing ulcer requiring endoscopic clipping and IR coiling, Enlarged appearing right adnexa probably enlarged appearing right ovary IE .,Enlarged appearing right adnexa could be enlarged right ovary measuring 4 cm.. Follow-up ultrasound pelvis MAY BE USEFUL Gitelman syndrome PAST HX OVARIAN CYSTS REMOVED, ACHALASIA plan post-op dx carida ulcer with prior endo-clips in gastric cardia embolization coil eroding into lumen as well Plan surgery and IR consults for definitive therapy if re-bleeds serial h/h Q 6 HRS MEDICAL ANTHROPOLOGIST CONSULT IV PROTONIX DRIP gi following EGD DONE ICU BED HOME MEDS SCD'S PCXR EKG 35 MIN CC TIME JOHANNE TALBOT MD Jun 30, 2019 09:44
--- NOTE | 2019-06-30 09:45 | PDOC4 ---
Operative Note Operative Note EGD Meds propofol per anesthesia Pre-op dx hematemesis post-op dx carida ulcer with prior endo-clips in gastric cardia embolization coil eroding into lumen as well Plan surgery and IR consults for definitive therapy if rebleeds WILLARD KHAN MD Jun 30, 2019 09:45
[2019-06-30] MEDS ORDERED: IV NORMAL SALINE 1000ML BAG 1,000 ML IV SCH (10:45)
[2019-06-30] MEDS ORDERED: 0.9 % SODIUM CHLORIDE 10 ML DISP.SYRIN. IV PRN (11:15)
[2019-06-30] MEDS ORDERED: BISACODYL 10 MG SUPP.RECT. PR PRN (11:15)
[2019-06-30] MEDS ORDERED: ZOLPIDEM 5 MG TABLET. PO PRN (11:15)
[2019-06-30] MEDS ORDERED: ACETAMINOPHEN 325 MG TABLET. PO PRN (11:15)
[2019-06-30] MEDS ORDERED: fentaNYL PF VIAL 100 MCG/2 ML VIAL IV PRN (11:15)
[2019-06-30] MEDS: SUCRALFATE 1 GM TABLET. PO SCH ×2 (11:44→16:56)
[2019-06-30] MEDS: SERTRALINE 50 MG TABLET. PO SCH (11:45)
[2019-06-30] MEDS: POTASSIUM CHLORIDE 10 MEQ TABLET.ER. PO SCH ×2 (11:45→21:00)
[2019-06-30] MEDS: PANTOPRAZOLE SODIUM IV DRIP 80 MG in IV NORMAL SALINE 100ML 100 ML IV SCH ×2 (11:48→21:21)
[2019-06-30] MEDS: cefTRIAXone IV Push 1 GM VIAL. IVP SCH (11:48)
[2019-06-30] MEDS ORDERED: levETIRAcetam 500 MG TABLET PO SCH (12:00)
[2019-06-30] MEDS ORDERED: DIPHENHYDRAMINE/ZINC ACETATE 2%/0.1% TOPICAL CREAM 28GM TUBE. TP PRN (12:30)
[2019-06-30] MEDS: levETIRAcetam 1,000 MG in IV DEXTROSE 5% 100ML 100 ML IV SCH ×2 (13:04→21:20)
--- NOTE | 2019-06-30 13:26 | PDOC ---
Provider Note Provider Note IR NOTE Consulted for upper GI bleed. Per discussion with GI: Endoscopy today showed no active bleed, but clips from prior endoscopy at a gastric cardia ulcer. Coils eroding into gastric mucosa also noted. Bleeding was felt to most likely be recurrent from previously treated lesion. CT wo contrast shows what appears to be left gastric coil embolization. This implies that this was the source of bleeding in the past, treated by outside IR. If re-bleeding occurs, the usefulness of endovascular intervention in this setting is significantly diminished due to prior LGA embo. Would consider endoscopic or surgical management, but will of course be available as needed. FRANKIE PHILLIP MD Jun 30, 2019 13:26
[2019-06-30] MEDS: diphenhydrAMINE 50 MG/ML VIAL IVP PRN ×2 (13:33→21:11)
[2019-06-30 13:35] LABS: HEMATOCRIT 27.9 % (36.0-47.0); HEMOGLOBIN 9.1 g/dL (12.0-15.5); RED BLOOD COUNT 3.04 x10^6/uL (3.50-5.40); RED CELL DISTRIBUTION WIDTH 16.5 % (11.5-14.5); WHITE BLOOD COUNT 3.5 x10^3/uL (4.0-11.0)
--- NOTE | 2019-06-30 14:00 | PDOC2 ---
CONSULT Date of Consult Date of Consult DATE: 06/30/19 TIME: 13:57 History of Present Illness Reason for Visit: The patient is a 49 year old female with a prior history of gastric ulcers, normally lives in [facility]. She was driving through but came to the ER due to vomiting blood which started yesterday. She does note some LUQ abdominal pain starting then as well. She states that she had a prior bleeding ulcer treated with EGD and clip placement. She denies having an IR embolization procedure. Past Medical History Past Medical History Gitelman's syndrome, gastric ulcers, achalasia Past Surgical History Past Surgical History Csection, tubal, heller myotomy, prior partial gastrectomy, cholecystectomy Family History Family History: Hypertension Social History No ALCOHOL: none Drugs: None Current Medications Current Medications Current Medications Sodium Chloride 1,000 ml @ 1,000 mls/hr 1X ONCE IV Last administered on 06/29/19at 22:11; Start 06/29/19 at 22:00; Stop 06/29/19 at 22:59; Status DC Pantoprazole Sodium 80 mg/ Sodium Chloride 100 ml @ 10 mls/hr Q10H IV Last administered on 06/30/19at 11:48; Start 06/29/19 at 23:00 Pantoprazole Sodium (PROTONIX VIAL for IV PUSH) 80 mg 1X ONCE IVP Last administered on 06/29/19at 22:11; Start 06/29/19 at 22:30; Stop 06/29/19 at 22:31; Status DC Ondansetron HCl (Zofran) 4 mg 1X ONCE IV Last administered on 06/29/19at 22:11; Start 06/29/19 at 22:30; Stop 06/29/19 at 22:31; Status DC Hydromorphone HCl (Dilaudid) 1 mg 1X ONCE IV Last administered on 06/29/19at 22:28; Start 06/29/19 at 23:00; Stop 06/29/19 at 23:01; Status DC Hydromorphone HCl (Dilaudid) 1 mg 1X ONCE IV Last administered on 06/30/19at 00:33; Start 06/30/19 at 01:00; Stop 06/30/19 at 01:01; Status DC Ondansetron HCl (Zofran) 4 mg 1X ONCE IV Last administered on 06/30/19at 00:33; Start 06/30/19 at 01:00; Stop 06/30/19 at 01:01; Status DC Ondansetron HCl (Zofran) 4 mg PRN Q8HRS PRN IV NAUSEA/VOMITING 1ST CHOICE Last administered on 06/30/19at 07:21; Start 06/30/19 at 01:00; Stop 07/01/19 at 00:59 Sodium Chloride 1,000 ml @ 100 mls/hr 1X ONCE IV Last administered on 06/30/19at 01:30; Start 06/30/19 at 01:30; Stop 06/30/19 at 11:29; Status DC Hydromorphone HCl (Dilaudid) 1 mg PRN Q4HRS PRN IV SEVERE PAIN 7-10 Last administered on 06/30/19at 11:08; Start 06/30/19 at 01:15; Stop 06/30/19 at 13:26; Status DC Propofol 20 ml @ As Directed STK-MED ONCE IV ; Start 06/30/19 at 09:13; Stop 06/30/19 at 09:14; Status DC Sodium Chloride 1,000 ml @ 75 mls/hr [id number] IV Last administered on 06/30/19at 11:08; Start 06/30/19 at 10:45; Stop 06/30/19 at 11:21; Status DC Sucralfate (Carafate) 1 gm TIDBFRMEAL PO ; Start 06/30/19 at 11:30 Levetiracetam (Keppra) 1,000 mg BID PO ; Start 06/30/19 at 12:00; Status Cancel Magnesium Oxide (Magnesium Oxide) 800 mg TID PO ; Start 07/01/19 at 09:00 Potassium Chloride (Klor-Con) 40 meq BID PO ; Start 06/30/19 at 12:00 Ropinirole HCl (Requip) 2 mg TID PO ; Start 06/30/19 at 14:00 Sertraline HCl (Zoloft) 150 mg DAILY PO ; Start 06/30/19 at 12:00 Acetaminophen (Tylenol) 650 mg Q6H PRN PO Headaches, Temp > 101.5'; Start at 11:15 Lorazepam (Ativan Inj) 0.5 mg PRN Q6HRS PRN IV ANXIETY / AGITATION; Start 06/30/19 at 11:15 Ondansetron HCl (Zofran) 4 mg PRN Q6HRS PRN IV NAUSEA/VOMITING; Start 06/30/19 at 11:15 Zolpidem Tartrate (Ambien) 5 mg PRN QHS PRN PO INSOMNIA, MAY REPEAT IN 1HR; Start 06/30/19 at 11:15 Info (Icu Electrolyte Protocol) 1 ea DAILY MC ; Start 07/01/19 at 09:00 Sodium Chloride (Normal Saline Flush) 3 ml QSHIFT PRN IV AFTER MEDS AND BLOOD DRAWS; Start 06/30/19 at 11:15 Potassium Chloride/Sodium Chloride 1,000 ml @ 100 mls/hr Q10H IV Last administered on 06/30/19at 11:48; Start 06/30/19 at 11:04 Fentanyl Citrate (Fentanyl 2ml Vial) 50 mcg PRN Q1HR PRN IV SEVERE PAIN 7-10; Start 06/30/19 at 11:15 Docusate Sodium (Colace) 100 mg BID PO ; Start 06/30/19 at 21:00 Bisacodyl (Dulcolax Supp) 10 mg PRN DAILY PRN DE CONSTIPATION; Start 06/30/19 at 11:15 Ceftriaxone Sodium (Rocephin) 1 gm Q24H IVP Last administered on 06/30/19at 11:48; Start 06/30/19 at 12:00 Levetiracetam 1000 mg/Dextrose 110 ml @ 440 mls/hr Q12HR IV Last administered on 06/30/19at 13:04; Start 06/30/19 at 12:00 Zinc Acetate/ Diphenhydramine (Benadryl Topical) 1 kumar PRN QID PRN TP ITCHING; Start 06/30/19 at 12:30; Stop 06/30/19 at 13:26; Status DC Hydromorphone HCl (Dilaudid) 0.5 mg PRN Q2HRS PRN IV SEVERE PAIN 7-10; Start 06/30/19 at 13:30 Diphenhydramine HCl (Benadryl) 25 mg PRN Q6HRS PRN IVP ITCHING Last administered on 06/30/19at 13:33; Start 06/30/19 at 13:30 Active Scripts Active Reported Zoloft (Sertraline Hcl) 100 Mg Tablet 150 Mg PO DAILY Requip (Ropinirole Hcl) 3 Mg Tablet 2 Mg PO TID Carafate (Sucralfate) 1 Gm Tablet 1 Gm PO TID Pepcid (Famotidine) 20 Mg Tablet 20 Mg PO BID Keppra (Levetiracetam) 1,000 Mg Tablet 1,000 Mg PO BID Magnesium (Magnesium Oxide) 500 Mg Capsule 800 Mg PO TID Klor-Con 10 (Potassium Chloride) 10 Meq Tablet.er 40 Meq PO BID Allergies Allergies: Coded Allergies: Iodinated Contrast Media (Verified Allergy, Severe, 06/30/19) NSAIDS (Non-Steroidal Anti-Inflamma (Verified Allergy, Intermediate, 06/30/19) Sulfa (Sulfonamide Antibiotics) (Verified Allergy, Intermediate, 06/30/19) adhesive (Verified Allergy, Intermediate, 06/30/19) ketorolac (Verified Allergy, Intermediate, 06/30/19) metoclopramide (Verified Allergy, Intermediate, 06/30/19) morphine (Verified Allergy, Intermediate, 06/30/19) prochlorperazine (Verified Allergy, Intermediate, 06/30/19) ROS General: No: Chills, Night Sweats, Fatigue, Malaise, Appetite, Other PSYCHOLOGICAL ROS: No: Anxiety, Behavioral Disorder, Concentration difficultie, Decreased libido, Depression, Disorientation, Hallucinations, Hostility, Irritab lity, Memory difficulties, Mood Swings, Obsessive thoughts, Physical abuse, Sexual abuse, Sleep disturbances, Suicidal ideation, Other Eyes: No Blurry vision, No Decreased vision, No Double vision, No Dry eyes, No Excessive tearing, No Eye Pain, No Itchy Eyes, No Loss of vision, No Photophobia, No Scotomata, No Uses contacts, No Uses glasses, No Other ALLERGY AND IMMUNOLOGY: No: Hives, Insect Bite Sensitivity, Itchy/Watery Eyes, Nasal Congestion, Post Nasal Drip, Seasonal Allergies, Other Hematological and Lymphatic: No: Bleeding Problems, Blood Clots, Blood Transfusions, Brusing, Night Sweats, Pallor, Swollen Lymph Nodes, Other Respiratory: No: Cough, Hemoptysis, Orthopnea, Pleuritic Pain, Shortness of breath, SOB with excertion, Sputum Changes, Stridor, Tachypnea, Wheezing, Other Cardiovascular: No Chest Pain, No Palpitations, No Orthopnea, No Paroxysmal Noc. Dyspnea, No Edema, No Lt Headedness, No Other Gastrointestinal: Yes Other (upper GI bleeding) Genitourinary: No Dysuria, No Frequency, No Incontinence, No Hematuria, No Retention, No Discharge, No Urgency, No Pain, No Flank Pain, No Other, No , No , No , No , No , No , No Musculoskeletal: No Gait Disturbance, No Joint Pain, No Joint Stiffness, No Joint Swelling, No Muscle Pain, No Muscular Weakness, No Pain In:, No Swelling In:, No Other Neurological: No Behavorial Changes, No Bowel/Bladder ControlChng, No Confusion, No Dizziness, No Gait Disturbance, No Headaches, No Impaired Coord/balance, No Memory Loss, No Numbness/Tingling, No Seizures, No Speech Problems, No Tremors, No Visual Changes, No Weakness, No Other Skin: No Dry Skin, No Eczema, No Hair Changes, No Lumps, No Mole Changes, No Mottling, No Nail Changes, No Pruritus, No Rash, No Skin Lesion Changes, No Other, No Acne Physical Exam General: Alert, Oriented X3, Cooperative HEENT: Atraumatic Lungs: Clear to auscultation Heart: Regular rate Abdomen: Soft (mildly tender LUQ, no guarding, prior abdominal scars) Extremities: No clubbing, No cyanosis Skin: No rashes Neuro: Normal speech Psych/Mental Status: Mental status NL Vitals VITALS Vital Signs Date Time Temp Pulse Resp B/P (MAP) Pulse Ox O2 Delivery O2 Flow Rate FiO2 06/30/19 13:05 20 98 Room Air 06/30/19 10:34 98.0 79 123/74 (90) 98.0 Labs Labs Laboratory Tests Test 06/29/19 21:36 06/29/19 21:45 06/29/19 22:30 06/30/19 13:20 Urine Collection Type Void Urine Color Yellow Urine Clarity Clear Urine pH 7.0 Urine Specific [place] 1.020 Urine Protein Negative mg/dL (NEG-TRACE) Urine Glucose (UA) Negative mg/dL (NEG) Urine Ketones (Stick) Negative mg/dL (NEG) Urine Blood Negative (NEG) Urine Nitrite Negative (NEG) Urine Bilirubin Negative (NEG) Urine Urobilinogen Dipstick 0.2 mg/dL (0.2 mg/dL) Urine Leukocyte Esterase Moderate (NEG) Urine RBC 0 /HPF (0-2) Urine WBC 5-10 /HPF (0-4) Urine Squamous Epithelial Cells Mod /LPF Urine Bacteria Few /HPF (0-FEW) Urine Mucus Slight /LPF White Blood Count 5.8 x10^3/uL (4.0-11.0) 3.5 x10^3/uL (4.0-11.0) Red Blood Count 3.62 x10^6/uL (3.50-5.40) 3.04 x10^6/uL (3.50-5.40) Hemoglobin 10.8 g/dL (12.0-15.5) 9.1 g/dL (12.0-15.5) Hematocrit 33.2 % (36.0-47.0) 27.9 % (36.0-47.0) Mean Corpuscular Volume 92 fL (79-100) 92 fL (79-100) Mean Corpuscular Hemoglobin 30 pg (25-35) 30 pg (25-35) Mean Corpuscular Hemoglobin Concent 33 g/dL (31-37) 33 g/dL (31-37) Red Cell Distribution Width 16.4 % (11.5-14.5) 16.5 % (11.5-14.5) Platelet Count 302 x10^3/uL (140-400) 230 x10^3/uL (140-400) Neutrophils (%) (Auto) 73 % (31-73) Lymphocytes (%) (Auto) 17 % (24-48) Monocytes (%) (Auto) 8 % (0-9) Eosinophils (%) (Auto) 2 % (0-3) Basophils (%) (Auto) 1 % (0-3) Neutrophils # (Auto) 4.2 x10^3/uL (1.8-7.7) Lymphocytes # (Auto) 1.0 x10^3/uL (1.0-4.8) Monocytes # (Auto) 0.4 x10^3/uL (0.0-1.1) Eosinophils # (Auto) 0.1 x10^3/uL (0.0-0.7) Basophils # (Auto) 0.0 x10^3/uL (0.0-0.2) Sodium Level 139 mmol/L (136-145) Potassium Level 3.4 mmol/L (3.5-5.1) Chloride Level 101 mmol/L (98-107) Carbon Dioxide Level 31 mmol/L (21-32) Anion Gap 7 (6-14) Blood Urea Nitrogen 15 mg/dL (7-20) Creatinine 0.8 mg/dL (0.6-1.0) Estimated GFR (Cockcroft-Gault) 76.9 BUN/Creatinine Ratio 19 (6-20) Glucose Level 114 mg/dL (70-99) Calcium Level 9.0 mg/dL (8.5-10.1) Total Bilirubin 0.1 mg/dL (0.2-1.0) Aspartate Amino Transf (AST/SGOT) 16 U/L (15-37) Alanine Aminotransferase (ALT/SGPT) 18 U/L (14-59) Alkaline Phosphatase 77 U/L (46-116) Total Protein 7.0 g/dL (6.4-8.2) Albumin 3.6 g/dL (3.4-5.0) Albumin/Globulin Ratio 1.1 (1.0-1.7) Gastric Fluid Occult Blood Positive (NEG) Laboratory Tests Test 06/29/19 21:36 06/29/19 21:45 06/29/19 22:30 06/30/19 13:20 Urine Collection Type Void Urine Color Yellow Urine Clarity Clear Urine pH 7.0 Urine Specific [place] 1.020 Urine Protein Negative mg/dL (NEG-TRACE) Urine Glucose (UA) Negative mg/dL (NEG) Urine Ketones (Stick) Negative mg/dL (NEG) Urine Blood Negative (NEG) Urine Nitrite Negative (NEG) Urine Bilirubin Negative (NEG) Urine Urobilinogen Dipstick 0.2 mg/dL (0.2 mg/dL) Urine Leukocyte Esterase Moderate (NEG) Urine RBC 0 /HPF (0-2) Urine WBC 5-10 /HPF (0-4) Urine Squamous Epithelial Cells Mod /LPF Urine Bacteria Few /HPF (0-FEW) Urine Mucus Slight /LPF White Blood Count 5.8 x10^3/uL (4.0-11.0) 3.5 x10^3/uL (4.0-11.0) Red Blood Count 3.62 x10^6/uL (3.50-5.40) 3.04 x10^6/uL (3.50-5.40) Hemoglobin 10.8 g/dL (12.0-15.5) 9.1 g/dL (12.0-15.5) Hematocrit 33.2 % (36.0-47.0) 27.9 % (36.0-47.0) Mean Corpuscular Volume 92 fL (79-100) 92 fL (79-100) Mean Corpuscular Hemoglobin 30 pg (25-35) 30 pg (25-35) Mean Corpuscular Hemoglobin Concent 33 g/dL (31-37) 33 g/dL (31-37) Red Cell Distribution Width 16.4 % (11.5-14.5) 16.5 % (11.5-14.5) Platelet Count 302 x10^3/uL (140-400) 230 x10^3/uL (140-400) Neutrophils (%) (Auto) 73 % (31-73) Lymphocytes (%) (Auto) 17 % (24-48) Monocytes (%) (Auto) 8 % (0-9) Eosinophils (%) (Auto) 2 % (0-3) Basophils (%) (Auto) 1 % (0-3) Neutrophils # (Auto) 4.2 x10^3/uL (1.8-7.7) Lymphocytes # (Auto) 1.0 x10^3/uL (1.0-4.8) Monocytes # (Auto) 0.4 x10^3/uL (0.0-1.1) Eosinophils # (Auto) 0.1 x10^3/uL (0.0-0.7) Basophils # (Auto) 0.0 x10^3/uL (0.0-0.2) Sodium Level 139 mmol/L (136-145) Potassium Level 3.4 mmol/L (3.5-5.1) Chloride Level 101 mmol/L (98-107) Carbon Dioxide Level 31 mmol/L (21-32) Anion Gap 7 (6-14) Blood Urea Nitrogen 15 mg/dL (7-20) Creatinine 0.8 mg/dL (0.6-1.0) Estimated GFR (Cockcroft-Gault) 76.9 BUN/Creatinine Ratio 19 (6-20) Glucose Level 114 mg/dL (70-99) Calcium Level 9.0 mg/dL (8.5-10.1) Total Bilirubin 0.1 mg/dL (0.2-1.0) Aspartate Amino Transf (AST/SGOT) 16 U/L (15-37) Alanine Aminotransferase (ALT/SGPT) 18 U/L (14-59) Alkaline Phosphatase 77 U/L (46-116) Total Protein 7.0 g/dL (6.4-8.2) Albumin 3.6 g/dL (3.4-5.0) Albumin/Globulin Ratio 1.1 (1.0-1.7) Gastric Fluid Occult Blood Positive (NEG) Assessment/Plan Assessment/Plan Upper GI bleed, Hb ok; given prior surgeries for achalasia, prior partial gastrectomy, would maximize medical and non surgical options due to enhanced surgical risks. Would only consider surgery if other measures were attempted and unsuccessful with ongoing bleeding. WILLARD FU MD Jun 30, 2019 14:00
[2019-06-30] MEDS: rOPINIRole 1 MG TABLET. PO SCH ×2 (14:22→21:00)
--- NOTE | 2019-06-30 14:54 | PDOC2 ---
CONSULT Date of Consult Date of Consult DATE: 06/30/19 TIME: 14:52 Reason for Consult Reason for Consult: right adnexal mass History of Present Illness Reason for Visit: Reason for consult: enlarged right adnexa, abd pain HPI: The pt is a 49y who presented to the ER for LUQ pain and hematemesis. The pt underwent a EGD with GI this am. During her eval in the ER she underwent a CT revealin. Enlarged appearing right adnexa probably enlarged appearing right ovary. Follow-up ultrasound pelvis can be considered. 2. Multiple round hyperdensities identified in the bilateral kidneys the largest measuring 2 cm in the right kidney could be hyperdense masses or cysts. Follow-up nonemergent ultrasound can be considered. The pt states that she has had multiple cyst in the past. Most of them have resolved spontaneously. She did have surgery to remove a small one in the past. She states that she recently had a u/s a couple months ago to f/u on a CT that revealed cyst. The pt is relatively familiar with ovarian cyst. Explained that with an ovarian cyst usually the biggest concerned is the risk of malignancy. Age is the most important independent risk factor for ovarian cancer in the general population, with the incidence increasing sharply after the onset of menopause. Explained that typically a cyst under the size of 6cm was not concerning and could be expectantly managed. Explained that an u/s would help to better characterize other soft marker that were associated with malignancy. 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), PE (several years later - saw hematology, unclear cause), ovarian cysts, GERD, achalasia, GI bleed PSH: J tube placement, Heller myotomy, IVC filter, cholecystectomy, ovarian cyst removal, C/S x 2, BTL, cervical ablation (for dysplasia) Meds: K, Mag, Keppra All: Sulfa OBHx: 2 x TC/S Prenatal Nurse: LMP 4yrs ago BTL 2004 13yo / regular / 45yo SH: no tob, no EtOH Family History Family History: Hypertension Social History No ALCOHOL: none Drugs: None Current Medications Current Medications Current Medications Sodium Chloride 1,000 ml @ 1,000 mls/hr 1X ONCE IV Last administered on 06/29/19at 22:11; Start 06/29/19 at 22:00; Stop 06/29/19 at 22:59; Status DC Pantoprazole Sodium 80 mg/ Sodium Chloride 100 ml @ 10 mls/hr Q10H IV Last administered on 06/30/19at 11:48; Start 06/29/19 at 23:00 Pantoprazole Sodium (PROTONIX VIAL for IV PUSH) 80 mg 1X ONCE IVP Last administered on 06/29/19at 22:11; Start 06/29/19 at 22:30; Stop 06/29/19 at 22:31; Status DC Ondansetron HCl (Zofran) 4 mg 1X ONCE IV Last administered on 06/29/19at 22:11; Start 06/29/19 at 22:30; Stop 06/29/19 at 22:31; Status DC Hydromorphone HCl (Dilaudid) 1 mg 1X ONCE IV Last administered on 06/29/19at 22:28; Start 06/29/19 at 23:00; Stop 06/29/19 at 23:01; Status DC Hydromorphone HCl (Dilaudid) 1 mg 1X ONCE IV Last administered on 06/30/19at 00:33; Start 06/30/19 at 01:00; Stop 06/30/19 at 01:01; Status DC Ondansetron HCl (Zofran) 4 mg 1X ONCE IV Last administered on 06/30/19at 00:33; Start 06/30/19 at 01:00; Stop 06/30/19 at 01:01; Status DC Ondansetron HCl (Zofran) 4 mg PRN Q8HRS PRN IV NAUSEA/VOMITING 1ST CHOICE Last administered on 06/30/19at 07:21; Start 06/30/19 at 01:00; Stop 07/01/19 at 00:59 Sodium Chloride 1,000 ml @ 100 mls/hr 1X ONCE IV Last administered on 06/30/19at 01:30; Start 06/30/19 at 01:30; Stop 06/30/19 at 11:29; Status DC Hydromorphone HCl (Dilaudid) 1 mg PRN Q4HRS PRN IV SEVERE PAIN 7-10 Last administered on 06/30/19at 11:08; Start 06/30/19 at 01:15; Stop 06/30/19 at 13:26; Status DC Propofol 20 ml @ As Directed STK-MED ONCE IV ; Start 06/30/19 at 09:13; Stop 06/30/19 at 09:14; Status DC Sodium Chloride 1,000 ml @ 75 mls/hr [id number] IV Last administered on 06/30/19at 11:08; Start 06/30/19 at 10:45; Stop 06/30/19 at 11:21; Status DC Sucralfate (Carafate) 1 gm TIDBFRMEAL PO ; Start 06/30/19 at 11:30 Levetiracetam (Keppra) 1,000 mg BID PO ; Start 06/30/19 at 12:00; Status Cancel Magnesium Oxide (Magnesium Oxide) 800 mg TID PO ; Start 07/01/19 at 09:00 Potassium Chloride (Klor-Con) 40 meq BID PO ; Start 06/30/19 at 12:00 Ropinirole HCl (Requip) 2 mg TID PO ; Start 06/30/19 at 14:00 Sertraline HCl (Zoloft) 150 mg DAILY PO ; Start 06/30/19 at 12:00 Acetaminophen (Tylenol) 650 mg Q6H PRN PO Headaches, Temp > 101.5'; Start 06/30/19 at 11:15 Lorazepam (Ativan Inj) 0.5 mg PRN Q6HRS PRN IV ANXIETY / AGITATION; Start 06/30/19 at 11:15 Ondansetron HCl (Zofran) 4 mg PRN Q6HRS PRN IV NAUSEA/VOMITING; Start 06/30/19 at 11:15 Zolpidem Tartrate (Ambien) 5 mg PRN QHS PRN PO INSOMNIA, MAY REPEAT IN 1HR; Start 06/30/19 at 11:15 Info (Icu Electrolyte Protocol) 1 ea DAILY MC ; Start 07/01/19 at 09:00 Sodium Chloride (Normal Saline Flush) 3 ml QSHIFT PRN IV AFTER MEDS AND BLOOD DRAWS; Start 06/30/19 at 11:15 Potassium Chloride/Sodium Chloride 1,000 ml @ 100 mls/hr Q10H IV Last administered on 06/30/19at 11:48; Start 06/30/19 at 11:04 Fentanyl Citrate (Fentanyl 2ml Vial) 50 mcg PRN Q1HR PRN IV SEVERE PAIN 7-10; Start 06/30/19 at 11:15 Docusate Sodium (Colace) 100 mg BID PO ; Start 06/30/19 at 21:00 Bisacodyl (Dulcolax Supp) 10 mg PRN DAILY PRN [place] CONSTIPATION; Start 06/30/19 at 11:15 Ceftriaxone Sodium (Rocephin) 1 gm Q24H IVP Last administered on 06/30/19at 11:48; Start 06/30/19 at 12:00 Levetiracetam 1000 mg/Dextrose 110 ml @ 440 mls/hr Q12HR IV Last administered on 06/30/19at 13:04; Start 06/30/19 at 12:00 Zinc Acetate/ Diphenhydramine (Benadryl Topical) 1 kumar PRN QID PRN TP ITCHING; Start 06/30/19 at 12:30; Stop 06/30/19 at 13:26; Status DC Hydromorphone HCl (Dilaudid) 0.5 mg PRN Q2HRS PRN IV SEVERE PAIN 7-10; Start 06/30/19 at 13:30 Diphenhydramine HCl (Benadryl) 25 mg PRN Q6HRS PRN IVP ITCHING Last administered on 06/30/19at 13:33; Start 06/30/19 at 13:30 Active Scripts Active Reported Zoloft (Sertraline Hcl) 100 Mg Tablet 150 Mg PO DAILY Requip (Ropinirole Hcl) 3 Mg Tablet 2 Mg PO TID Carafate (Sucralfate) 1 Gm Tablet 1 Gm PO TID Pepcid (Famotidine) 20 Mg Tablet 20 Mg PO BID Keppra (Levetiracetam) 1,000 Mg Tablet 1,000 Mg PO BID Magnesium (Magnesium Oxide) 500 Mg Capsule 800 Mg PO TID Klor-Con 10 (Potassium Chloride) 10 Meq Tablet.er 40 Meq PO BID Allergies Allergies: Coded Allergies: Iodinated Contrast Media (Verified Allergy, Severe, 06/30/19) NSAIDS (Non-Steroidal Anti-Inflamma (Verified Allergy, Intermediate, 06/30/19) Sulfa (Sulfonamide Antibiotics) (Verified Allergy, Intermediate, 06/30/19) adhesive (Verified Allergy, Intermediate, 06/30/19) ketorolac (Verified Allergy, Intermediate, 06/30/19) metoclopramide (Verified Allergy, Intermediate, 06/30/19) morphine (Verified Allergy, Intermediate, 06/30/19) prochlorperazine (Verified Allergy, Intermediate, 06/30/19) Physical Exam Physical Exam CTAB RRR S/epigastric to LUQ tenderness under ribs/ND No C/C/E Vitals VITALS Vital Signs Date Time Temp Pulse Resp B/P (MAP) Pulse Ox O2 Delivery O2 Flow Rate FiO2 06/30/19 13:05 20 98 Room Air 06/30/19 10:34 98.0 79 123/74 (90) 98.0 Labs Labs Laboratory Tests Test 06/29/19 21:36 06/29/19 21:45 06/29/19 22:30 06/30/19 13:20 Urine Collection Type Void Urine Color Yellow Urine Clarity Clear Urine pH 7.0 Urine Specific [place] 1.020 Urine Protein Negative mg/dL (NEG-TRACE) Urine Glucose (UA) Negative mg/dL (NEG) Urine Ketones (Stick) Negative mg/dL (NEG) Urine Blood Negative (NEG) Urine Nitrite Negative (NEG) Urine Bilirubin Negative (NEG) Urine Urobilinogen Dipstick 0.2 mg/dL (0.2 mg/dL) Urine Leukocyte Esterase Moderate (NEG) Urine RBC 0 /HPF (0-2) Urine WBC 5-10 /HPF (0-4) Urine Squamous Epithelial Cells Mod /LPF Urine Bacteria Few /HPF (0-FEW) Urine Mucus Slight /LPF White Blood Count 5.8 x10^3/uL (4.0-11.0) 3.5 x10^3/uL (4.0-11.0) Red Blood Count 3.62 x10^6/uL (3.50-5.40) 3.04 x10^6/uL (3.50-5.40) Hemoglobin 10.8 g/dL (12.0-15.5) 9.1 g/dL (12.0-15.5) Hematocrit 33.2 % (36.0-47.0) 27.9 % (36.0-47.0) Mean Corpuscular Volume 92 fL (79-100) 92 fL (79-100) Mean Corpuscular Hemoglobin 30 pg (25-35) 30 pg (25-35) Mean Corpuscular Hemoglobin Concent 33 g/dL (31-37) 33 g/dL (31-37) Red Cell Distribution Width 16.4 % (11.5-14.5) 16.5 % (11.5-14.5) Platelet Count 302 x10^3/uL (140-400) 230 x10^3/uL (140-400) Neutrophils (%) (Auto) 73 % (31-73) Lymphocytes (%) (Auto) 17 % (24-48) Monocytes (%) (Auto) 8 % (0-9) Eosinophils (%) (Auto) 2 % (0-3) Basophils (%) (Auto) 1 % (0-3) Neutrophils # (Auto) 4.2 x10^3/uL (1.8-7.7) Lymphocytes # (Auto) 1.0 x10^3/uL (1.0-4.8) Monocytes # (Auto) 0.4 x10^3/uL (0.0-1.1) Eosinophils # (Auto) 0.1 x10^3/uL (0.0-0.7) Basophils # (Auto) 0.0 x10^3/uL (0.0-0.2) Sodium Level 139 mmol/L (136-145) Potassium Level 3.4 mmol/L (3.5-5.1) Chloride Level 101 mmol/L (98-107) Carbon Dioxide Level 31 mmol/L (21-32) Anion Gap 7 (6-14) Blood Urea Nitrogen 15 mg/dL (7-20) Creatinine 0.8 mg/dL (0.6-1.0) Estimated GFR (Cockcroft-Gault) 76.9 BUN/Creatinine Ratio 19 (6-20) Glucose Level 114 mg/dL (70-99) Calcium Level 9.0 mg/dL (8.5-10.1) Total Bilirubin 0.1 mg/dL (0.2-1.0) Aspartate Amino Transf (AST/SGOT) 16 U/L (15-37) Alanine Aminotransferase (ALT/SGPT) 18 U/L (14-59) Alkaline Phosphatase 77 U/L (46-116) Total Protein 7.0 g/dL (6.4-8.2) Albumin 3.6 g/dL (3.4-5.0) Albumin/Globulin Ratio 1.1 (1.0-1.7) Gastric Fluid Occult Blood Positive (NEG) Magnesium Level 1.2 mg/dL (1.8-2.4) Lipase 156 U/L (73-393) Laboratory Tests Test 06/29/19 21:36 06/29/19 21:45 06/29/19 22:30 06/30/19 13:20 Urine Collection Type Void Urine Color Yellow Urine Clarity Clear Urine pH 7.0 Urine Specific [place] 1.020 Urine Protein Negative mg/dL (NEG-TRACE) Urine Glucose (UA) Negative mg/dL (NEG) Urine Ketones (Stick) Negative mg/dL (NEG) Urine Blood Negative (NEG) Urine Nitrite Negative (NEG) Urine Bilirubin Negative (NEG) Urine Urobilinogen Dipstick 0.2 mg/dL (0.2 mg/dL) Urine Leukocyte Esterase Moderate (NEG) Urine RBC 0 /HPF (0-2) Urine WBC 5-10 /HPF (0-4) Urine Squamous Epithelial Cells Mod /LPF Urine Bacteria Few /HPF (0-FEW) Urine Mucus Slight /LPF White Blood Count 5.8 x10^3/uL (4.0-11.0) 3.5 x10^3/uL (4.0-11.0) Red Blood Count 3.62 x10^6/uL (3.50-5.40) 3.04 x10^6/uL (3.50-5.40) Hemoglobin 10.8 g/dL (12.0-15.5) 9.1 g/dL (12.0-15.5) Hematocrit 33.2 % (36.0-47.0) 27.9 % (36.0-47.0) Mean Corpuscular Volume 92 fL (79-100) 92 fL (79-100) Mean Corpuscular Hemoglobin 30 pg (25-35) 30 pg (25-35) Mean Corpuscular Hemoglobin Concent 33 g/dL (31-37) 33 g/dL (31-37) Red Cell Distribution Width 16.4 % (11.5-14.5) 16.5 % (11.5-14.5) Platelet Count 302 x10^3/uL (140-400) 230 x10^3/uL (140-400) Neutrophils (%) (Auto) 73 % (31-73) Lymphocytes (%) (Auto) 17 % (24-48) Monocytes (%) (Auto) 8 % (0-9) Eosinophils (%) (Auto) 2 % (0-3) Basophils (%) (Auto) 1 % (0-3) Neutrophils # (Auto) 4.2 x10^3/uL (1.8-7.7) Lymphocytes # (Auto) 1.0 x10^3/uL (1.0-4.8) Monocytes # (Auto) 0.4 x10^3/uL (0.0-1.1) Eosinophils # (Auto) 0.1 x10^3/uL (0.0-0.7) Basophils # (Auto) 0.0 x10^3/uL (0.0-0.2) Sodium Level 139 mmol/L (136-145) Potassium Level 3.4 mmol/L (3.5-5.1) Chloride Level 101 mmol/L (98-107) Carbon Dioxide Level 31 mmol/L (21-32) Anion Gap 7 (6-14) Blood Urea Nitrogen 15 mg/dL (7-20) Creatinine 0.8 mg/dL (0.6-1.0) Estimated GFR (Cockcroft-Gault) 76.9 BUN/Creatinine Ratio 19 (6-20) Glucose Level 114 mg/dL (70-99) Calcium Level 9.0 mg/dL (8.5-10.1) Total Bilirubin 0.1 mg/dL (0.2-1.0) Aspartate Amino Transf (AST/SGOT) 16 U/L (15-37) Alanine Aminotransferase (ALT/SGPT) 18 U/L (14-59) Alkaline Phosphatase 77 U/L (46-116) Total Protein 7.0 g/dL (6.4-8.2) Albumin 3.6 g/dL (3.4-5.0) Albumin/Globulin Ratio 1.1 (1.0-1.7) Gastric Fluid Occult Blood Positive (NEG) Magnesium Level 1.2 mg/dL (1.8-2.4) Lipase 156 U/L (73-393) Assessment/Plan Assessment/Plan Assessment: 49y who presented to the ER for LUQ pain and hematemesis. Consulted for right adnexal mass. Plan: 1.) Right adnexal mass 4 cm right adnexal. Would consider u/s to better evaluate cyst. Since the pt has had a recent u/s and finding so far are reassuring for low risk of malignancy, could consider u/s once pt gets out of ICU or on an outpt basis. Ultrasound findings that should raise the clinician's level of concern regarding malignancy include cyst size greater than 10 cm, papillary or solid components, irregularity, presence of ascites, and high color Doppler flow. 2.) H/o dysplasia cervical ablation 2012, unaware of abnml paps since 3.) Upper GI bleed/Hematemesis s/p EGD with GI, Hgb 9.1 4.) Gitelman syndrome manage her primary team 5.) H/o UGI bleed requiring endotherapy and IR coiling 6.) GERD 7.) H/o achalasia s/p Heller myotomy, h/o J tube placement/removal 8.) H/o pancreatitis - unclear etiology 9.) Will continue to follow DIANNA CASH MD Jun 30, 2019 14:54
[2019-06-30] MEDS ORDERED: MAGNESIUM SULFATE 4GM 100 ML IV ONE (15:15)
[2019-06-30] MEDS: POTASSIUM CHL 20MEQ PREMIX 50 ML IV SCH ×2 (15:47→16:56)
--- NOTE | 2019-06-30 16:27 | RAD ---
CHEST AP ONLY Clinical Indication: Abdominal pain, pneumonia Comparison: None. Findings: Left subclavian infusion port catheter is present with the tip overlying superior vena cava. The cardiomediastinal silhouette is normal. Lungs are clear. There is no pneumothorax. No pleural effusion is appreciated. No acute bone abnormality. Left upper quadrant surgical clips are present. Scoliosis noted. IMPRESSION: No acute cardiopulmonary process. Electronically signed by: Sina Ivy MD (06/30/2019 4:24 PM) [facility]
[2019-06-30] MEDS: DOCUSATE SODIUM 100 MG CAPSULE. PO SCH (21:00)
[2019-06-30 22:07] LABS: HEMATOCRIT 26.8 % (36.0-47.0); RED BLOOD COUNT 2.92 x10^6/uL (3.50-5.40); RED CELL DISTRIBUTION WIDTH 16.8 % (11.5-14.5)
[2019-07-01] VITALS (15 sets, daily range): BP systolic 82–124; BP diastolic 47–64
[2019-07-01] MEDS: HYDROmorphone 2 MG/ML VIAL IV PRN ×10 (01:05→22:54)
[2019-07-01] MEDS: diphenhydrAMINE 50 MG/ML VIAL IVP PRN ×4 (03:19→22:53)
[2019-07-01 04:31] LABS: BASO % 1 % (0-3); EOS # 0.1 x10^3/uL (0.0-0.7); EOS % 5 % (0-3); HEMATOCRIT 28.2 % (36.0-47.0); HEMOGLOBIN 9.2 g/dL (12.0-15.5); LYMPH # 0.9 x10^3/uL (1.0-4.8); LYMPH % 31 % (24-48); MEAN CORPUSCULAR HEMOGLOBIN 30 pg (25-35); MEAN CORPUSCULAR HGB CONC 33 g/dL (31-37); MEAN CORPUSCULAR VOLUME 93 fL (79-100); MONO # 0.3 x10^3/uL (0.0-1.1); MONO % 12 % (0-9); NEUT # 1.5 x10^3/uL (1.8-7.7); NEUT % 52 % (31-73); PLATELET COUNT 234 x10^3/uL (140-400); RED BLOOD COUNT 3.05 x10^6/uL (3.50-5.40); RED CELL DISTRIBUTION WIDTH 16.8 % (11.5-14.5); WHITE BLOOD COUNT 2.8 x10^3/uL (4.0-11.0)
[2019-07-01] MEDS: ONDANSETRON PF 4 MG/2 ML VIAL. IV PRN ×3 (05:40→20:44)
[2019-07-01 05:50] LABS: ALBUMIN/GLOBULIN RATIO 1.1 (1.0-1.7); CALCIUM 8.5 mg/dL (8.5-10.1); CREATININE 0.7 mg/dL (0.6-1.0); GFR 89.7; MAGNESIUM 1.8 mg/dL (1.8-2.4); POTASSIUM 4.1 mmol/L (3.5-5.1); TOTAL BILIRUBIN 0.2 mg/dL (0.2-1.0); TOTAL PROTEIN 5.8 g/dL (6.4-8.2)
--- NOTE | 2019-07-01 08:13 | PDOC ---
PROGRESS NOTES Chief Complaint Chief Complaint Hematemesis Right adnexal mass 4 cm right adnexal. 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 Seen by GI, endoscopy 06/30 showed no active bleed, but clips from prior endoscopy at a gastric cardia ulcer. Coils eroding into gastric mucosa also noted. Bleeding was felt to most likely be recurrent from previously treated lesion by both endoclips and gastric coil embolization per IR consultation. She had one bout of emesis last night, non-bloody, 1 clot, 30ml. She has a bit of nausea this morning, but wants to try fluids. Pain still present, but well controlled with meds. Vitals Vitals Vital Signs Date Time Temp Pulse Resp B/P (MAP) Pulse Ox O2 Delivery O2 Flow Rate FiO2 07/01/19 07:51 20 97 Nasal Cannula 1.5 07/01/19 07:00 64 86/47 (60) 06/30/19 19:00 97.8 97.8 Physical Exam General: Alert, Oriented X3, Cooperative Heart: Regular rate Abdomen: Soft (mildly tender LUQ, no guarding, prior abdominal scars) Extremities: No clubbing, No cyanosis Skin: No rashes Labs LABS Laboratory Tests Test 06/30/19 13:20 06/30/19 22:00 07/01/19 04:20 White Blood Count 3.5 x10^3/uL (4.0-11.0) 3.0 x10^3/uL (4.0-11.0) 2.8 x10^3/uL (4.0-11.0) Red Blood Count 3.04 x10^6/uL (3.50-5.40) 2.92 x10^6/uL (3.50-5.40) 3.05 x10^6/uL (3.50-5.40) Hemoglobin 9.1 g/dL (12.0-15.5) 9.0 g/dL (12.0-15.5) 9.2 g/dL (12.0-15.5) Hematocrit 27.9 % (36.0-47.0) 26.8 % (36.0-47.0) 28.2 % (36.0-47.0) Mean Corpuscular Volume 92 fL (79-100) 92 fL (79-100) 93 fL (79-100) Mean Corpuscular Hemoglobin 30 pg (25-35) 31 pg (25-35) 30 pg (25-35) Mean Corpuscular Hemoglobin Concent 33 g/dL (31-37) 34 g/dL (31-37) 33 g/dL (31-37) Red Cell Distribution Width 16.5 % (11.5-14.5) 16.8 % (11.5-14.5) 16.8 % (11.5-14.5) Platelet Count 230 x10^3/uL (140-400) 235 x10^3/uL (140-400) 234 x10^3/uL (140-400) Magnesium Level 1.2 mg/dL (1.8-2.4) 1.8 mg/dL (1.8-2.4) Lipase 156 U/L (73-393) Neutrophils (%) (Auto) 52 % (31-73) Lymphocytes (%) (Auto) 31 % (24-48) Monocytes (%) (Auto) 12 % (0-9) Eosinophils (%) (Auto) 5 % (0-3) Basophils (%) (Auto) 1 % (0-3) Neutrophils # (Auto) 1.5 x10^3/uL (1.8-7.7) Lymphocytes # (Auto) 0.9 x10^3/uL (1.0-4.8) Monocytes # (Auto) 0.3 x10^3/uL (0.0-1.1) Eosinophils # (Auto) 0.1 x10^3/uL (0.0-0.7) Basophils # (Auto) 0.0 x10^3/uL (0.0-0.2) Sodium Level 142 mmol/L (136-145) Potassium Level 4.1 mmol/L (3.5-5.1) Chloride Level 105 mmol/L (98-107) Carbon Dioxide Level 31 mmol/L (21-32) Anion Gap 6 (6-14) Blood Urea Nitrogen 8 mg/dL (7-20) Creatinine 0.7 mg/dL (0.6-1.0) Estimated GFR (Cockcroft-Gault) 89.7 BUN/Creatinine Ratio 11 (6-20) Glucose Level 84 mg/dL (70-99) Calcium Level 8.5 mg/dL (8.5-10.1) Total Bilirubin 0.2 mg/dL (0.2-1.0) Aspartate Amino Transf (AST/SGOT) 18 U/L (15-37) Alanine Aminotransferase (ALT/SGPT) 16 U/L (14-59) Alkaline Phosphatase 66 U/L (46-116) Total Protein 5.8 g/dL (6.4-8.2) Albumin 3.0 g/dL (3.4-5.0) Albumin/Globulin Ratio 1.1 (1.0-1.7) Comment Review of Relevant I have reviewed the following items brandon (where applicable) has been applied. Labs Laboratory Tests Test 06/29/19 21:36 06/29/19 21:45 06/29/19 22:30 06/30/19 13:20 Urine Collection Type Void Urine Color Yellow Urine Clarity Clear Urine pH 7.0 Urine Specific Roann 1.020 Urine Protein Negative mg/dL (NEG-TRACE) Urine Glucose (UA) Negative mg/dL (NEG) Urine Ketones (Stick) Negative mg/dL (NEG) Urine Blood Negative (NEG) Urine Nitrite Negative (NEG) Urine Bilirubin Negative (NEG) Urine Urobilinogen Dipstick 0.2 mg/dL (0.2 mg/dL) Urine Leukocyte Esterase Moderate (NEG) Urine RBC 0 /HPF (0-2) Urine WBC 5-10 /HPF (0-4) Urine Squamous Epithelial Cells Mod /LPF Urine Bacteria Few /HPF (0-FEW) Urine Mucus Slight /LPF White Blood Count 5.8 x10^3/uL (4.0-11.0) 3.5 x10^3/uL (4.0-11.0) Red Blood Count 3.62 x10^6/uL (3.50-5.40) 3.04 x10^6/uL (3.50-5.40) Hemoglobin 10.8 g/dL (12.0-15.5) 9.1 g/dL (12.0-15.5) Hematocrit 33.2 % (36.0-47.0) 27.9 % (36.0-47.0) Mean Corpuscular Volume 92 fL (79-100) 92 fL (79-100) Mean Corpuscular Hemoglobin 30 pg (25-35) 30 pg (25-35) Mean Corpuscular Hemoglobin Concent 33 g/dL (31-37) 33 g/dL (31-37) Red Cell Distribution Width 16.4 % (11.5-14.5) 16.5 % (11.5-14.5) Platelet Count 302 x10^3/uL (140-400) 230 x10^3/uL (140-400) Neutrophils (%) (Auto) 73 % (31-73) Lymphocytes (%) (Auto) 17 % (24-48) Monocytes (%) (Auto) 8 % (0-9) Eosinophils (%) (Auto) 2 % (0-3) Basophils (%) (Auto) 1 % (0-3) Neutrophils # (Auto) 4.2 x10^3/uL (1.8-7.7) Lymphocytes # (Auto) 1.0 x10^3/uL (1.0-4.8) Monocytes # (Auto) 0.4 x10^3/uL (0.0-1.1) Eosinophils # (Auto) 0.1 x10^3/uL (0.0-0.7) Basophils # (Auto) 0.0 x10^3/uL (0.0-0.2) Sodium Level 139 mmol/L (136-145) Potassium Level 3.4 mmol/L (3.5-5.1) Chloride Level 101 mmol/L (98-107) Carbon Dioxide Level 31 mmol/L (21-32) Anion Gap 7 (6-14) Blood Urea Nitrogen 15 mg/dL (7-20) Creatinine 0.8 mg/dL (0.6-1.0) Estimated GFR (Cockcroft-Gault) 76.9 BUN/Creatinine Ratio 19 (6-20) Glucose Level 114 mg/dL (70-99) Calcium Level 9.0 mg/dL (8.5-10.1) Total Bilirubin 0.1 mg/dL (0.2-1.0) Aspartate Amino Transf (AST/SGOT) 16 U/L (15-37) Alanine Aminotransferase (ALT/SGPT) 18 U/L (14-59) Alkaline Phosphatase 77 U/L (46-116) Total Protein 7.0 g/dL (6.4-8.2) Albumin 3.6 g/dL (3.4-5.0) Albumin/Globulin Ratio 1.1 (1.0-1.7) Gastric Fluid Occult Blood Positive (NEG) Magnesium Level 1.2 mg/dL (1.8-2.4) Lipase 156 U/L (73-393) Test 06/30/19 22:00 07/01/19 04:20 White Blood Count 3.0 x10^3/uL (4.0-11.0) 2.8 x10^3/uL (4.0-11.0) Red Blood Count 2.92 x10^6/uL (3.50-5.40) 3.05 x10^6/uL (3.50-5.40) Hemoglobin 9.0 g/dL (12.0-15.5) 9.2 g/dL (12.0-15.5) Hematocrit 26.8 % (36.0-47.0) 28.2 % (36.0-47.0) Mean Corpuscular Volume 92 fL (79-100) 93 fL (79-100) Mean Corpuscular Hemoglobin 31 pg (25-35) 30 pg (25-35) Mean Corpuscular Hemoglobin Concent 34 g/dL (31-37) 33 g/dL (31-37) Red Cell Distribution Width 16.8 % (11.5-14.5) 16.8 % (11.5-14.5) Platelet Count 235 x10^3/uL (140-400) 234 x10^3/uL (140-400) Neutrophils (%) (Auto) 52 % (31-73) Lymphocytes (%) (Auto) 31 % (24-48) Monocytes (%) (Auto) 12 % (0-9) Eosinophils (%) (Auto) 5 % (0-3) Basophils (%) (Auto) 1 % (0-3) Neutrophils # (Auto) 1.5 x10^3/uL (1.8-7.7) Lymphocytes # (Auto) 0.9 x10^3/uL (1.0-4.8) Monocytes # (Auto) 0.3 x10^3/uL (0.0-1.1) Eosinophils # (Auto) 0.1 x10^3/uL (0.0-0.7) Basophils # (Auto) 0.0 x10^3/uL (0.0-0.2) Sodium Level 142 mmol/L (136-145) Potassium Level 4.1 mmol/L (3.5-5.1) Chloride Level 105 mmol/L (98-107) Carbon Dioxide Level 31 mmol/L (21-32) Anion Gap 6 (6-14) Blood Urea Nitrogen 8 mg/dL (7-20) Creatinine 0.7 mg/dL (0.6-1.0) Estimated GFR (Cockcroft-Gault) 89.7 BUN/Creatinine Ratio 11 (6-20) Glucose Level 84 mg/dL (70-99) Calcium Level 8.5 mg/dL (8.5-10.1) Magnesium Level 1.8 mg/dL (1.8-2.4) Total Bilirubin 0.2 mg/dL (0.2-1.0) Aspartate Amino Transf (AST/SGOT) 18 U/L (15-37) Alanine Aminotransferase (ALT/SGPT) 16 U/L (14-59) Alkaline Phosphatase 66 U/L (46-116) Total Protein 5.8 g/dL (6.4-8.2) Albumin 3.0 g/dL (3.4-5.0) Albumin/Globulin Ratio 1.1 (1.0-1.7) Laboratory Tests Test 06/30/19 13:20 06/30/19 22:00 07/01/19 04:20 White Blood Count 3.5 x10^3/uL (4.0-11.0) 3.0 x10^3/uL (4.0-11.0) 2.8 x10^3/uL (4.0-11.0) Red Blood Count 3.04 x10^6/uL (3.50-5.40) 2.92 x10^6/uL (3.50-5.40) 3.05 x10^6/uL (3.50-5.40) Hemoglobin 9.1 g/dL (12.0-15.5) 9.0 g/dL (12.0-15.5) 9.2 g/dL (12.0-15.5) Hematocrit 27.9 % (36.0-47.0) 26.8 % (36.0-47.0) 28.2 % (36.0-47.0) Mean Corpuscular Volume 92 fL (79-100) 92 fL (79-100) 93 fL (79-100) Mean Corpuscular Hemoglobin 30 pg (25-35) 31 pg (25-35) 30 pg (25-35) Mean Corpuscular Hemoglobin Concent 33 g/dL (31-37) 34 g/dL (31-37) 33 g/dL (31-37) Red Cell Distribution Width 16.5 % (11.5-14.5) 16.8 % (11.5-14.5) 16.8 % (11.5-14.5) Platelet Count 230 x10^3/uL (140-400) 235 x10^3/uL (140-400) 234 x10^3/uL (140-400) Magnesium Level 1.2 mg/dL (1.8-2.4) 1.8 mg/dL (1.8-2.4) Lipase 156 U/L (73-393) Neutrophils (%) (Auto) 52 % (31-73) Lymphocytes (%) (Auto) 31 % (24-48) Monocytes (%) (Auto) 12 % (0-9) Eosinophils (%) (Auto) 5 % (0-3) Basophils (%) (Auto) 1 % (0-3) Neutrophils # (Auto) 1.5 x10^3/uL (1.8-7.7) Lymphocytes # (Auto) 0.9 x10^3/uL (1.0-4.8) Monocytes # (Auto) 0.3 x10^3/uL (0.0-1.1) Eosinophils # (Auto) 0.1 x10^3/uL (0.0-0.7) Basophils # (Auto) 0.0 x10^3/uL (0.0-0.2) Sodium Level 142 mmol/L (136-145) Potassium Level 4.1 mmol/L (3.5-5.1) Chloride Level 105 mmol/L (98-107) Carbon Dioxide Level 31 mmol/L (21-32) Anion Gap 6 (6-14) Blood Urea Nitrogen 8 mg/dL (7-20) Creatinine 0.7 mg/dL (0.6-1.0) Estimated GFR (Cockcroft-Gault) 89.7 BUN/Creatinine Ratio 11 (6-20) Glucose Level 84 mg/dL (70-99) Calcium Level 8.5 mg/dL (8.5-10.1) Total Bilirubin 0.2 mg/dL (0.2-1.0) Aspartate Amino Transf (AST/SGOT) 18 U/L (15-37) Alanine Aminotransferase (ALT/SGPT) 16 U/L (14-59) Alkaline Phosphatase 66 U/L (46-116) Total Protein 5.8 g/dL (6.4-8.2) Albumin 3.0 g/dL (3.4-5.0) Albumin/Globulin Ratio 1.1 (1.0-1.7) Medications Current Medications Sodium Chloride 1,000 ml @ 1,000 mls/hr 1X ONCE IV Last administered on 06/29/19at 22:11; Start 06/29/19 at 22:00; Stop 06/29/19 at 22:59; Status DC Pantoprazole Sodium 80 mg/ Sodium Chloride 100 ml @ 10 mls/hr Q10H IV Last a dministered on 06/30/19at 21:21; Start 06/29/19 at 23:00 Pantoprazole Sodium (PROTONIX VIAL for IV PUSH) 80 mg 1X ONCE IVP Last administered on 06/29/19at 22:11; Start 06/29/19 at 22:30; Stop 06/29/19 at 22:31; Status DC Ondansetron HCl (Zofran) 4 mg 1X ONCE IV Last administered on 06/29/19at 22:11; Start 06/29/19 at 22:30; Stop 06/29/19 at 22:31; Status DC Hydromorphone HCl (Dilaudid) 1 mg 1X ONCE IV Last administered on 06/29/19at 22:28; Start 06/29/19 at 23:00; Stop 06/29/19 at 23:01; Status DC Hydromorphone HCl (Dilaudid) 1 mg 1X ONCE IV Last administered on 06/30/19at 00:33; Start 06/30/19 at 01:00; Stop 06/30/19 at 01:01; Status DC Ondansetron HCl (Zofran) 4 mg 1X ONCE IV Last administered on 06/30/19at 00:33; Start 06/30/19 at 01:00; Stop 06/30/19 at 01:01; Status DC Ondansetron HCl (Zofran) 4 mg PRN Q8HRS PRN IV NAUSEA/VOMITING 1ST CHOICE Last administered on 06/30/19at 22:48; Start 06/30/19 at 01:00; Stop 07/01/19 at 00:59; Status DC Sodium Chloride 1,000 ml @ 100 mls/hr 1X ONCE IV Last administered on 06/30/19at 01:30; Start 06/30/19 at 01:30; Stop 06/30/19 at 11:29; Status DC Hydromorphone HCl (Dilaudid) 1 mg PRN Q4HRS PRN IV SEVERE PAIN 7-10 Last administered on 06/30/19at 11:08; Start 06/30/19 at 01:15; Stop 06/30/19 at 13:26; Status DC Propofol 20 ml @ As Directed STK-MED ONCE IV ; Start 06/30/19 at 09:13; Stop 06/30/19 at 09:14; Status DC Sodium Chloride 1,000 ml @ 75 mls/hr [id number] IV Last administered on 06/30/19at 11:08; Start 06/30/19 at 10:45; Stop 06/30/19 at 11:21; Status DC Sucralfate (Carafate) 1 gm TIDBFRMEAL PO ; Start 06/30/19 at 11:30 Levetiracetam (Keppra) 1,000 mg BID PO ; Start 06/30/19 at 12:00; Status Cancel Magnesium Oxide (Magnesium Oxide) 800 mg TID PO ; Start 07/01/19 at 09:00 Potassium Chloride (Klor-Con) 40 meq BID PO ; Start 06/30/19 at 12:00 Ropinirole HCl (Requip) 2 mg TID PO ; Start 06/30/19 at 14:00 Sertraline HCl (Zoloft) 150 mg DAILY PO ; Start 06/30/19 at 12:00 Acetaminophen (Tylenol) 650 mg Q6H PRN PO Headaches, Temp > 101.5'; Start 06/30/19 at 11:15 Lorazepam (Ativan Inj) 0.5 mg PRN Q6HRS PRN IV ANXIETY / AGITATION; Start 06/30/19 at 11:15 Ondansetron HCl (Zofran) 4 mg PRN Q6HRS PRN IV NAUSEA/VOMITING Last administered on 07/01/19at 05:40; Start 06/30/19 at 11:15 Zolpidem Tartrate (Ambien) 5 mg PRN QHS PRN PO INSOMNIA, MAY REPEAT IN 1HR; Start 06/30/19 at 11:15 Info ([facility] Electrolyte Protocol) 1 ea DAILY MC ; Start 07/01/19 at 09:00 Sodium Chloride (Normal Saline Flush) 3 ml QSHIFT PRN IV AFTER MEDS AND BLOOD DRAWS; Start 06/30/19 at 11:15 Potassium Chloride/Sodium Chloride 1,000 ml @ 100 mls/hr Q10H IV Last administered on 06/30/19at 23:45; Start 06/30/19 at 11:04 Fentanyl Citrate (Fentanyl 2ml Vial) 50 mcg PRN Q1HR PRN IV SEVERE PAIN 7-10; Start 06/30/19 at 11:15 Docusate Sodium (Colace) 100 mg BID PO ; Start 06/30/19 at 21:00 Bisacodyl (Dulcolax Supp) 10 mg PRN DAILY PRN NE CONSTIPATION; Start 06/30/19 at 11:15 Ceftriaxone Sodium (Rocephin) 1 gm Q24H IVP Last administered on 06/30/19at 11:48; Start 06/30/19 at 12:00 Levetiracetam 1000 mg/Dextrose 110 ml @ 440 mls/hr Q12HR IV Last administered on 06/30/19at 21:20; Start 06/30/19 at 12:00 Zinc Acetate/ Diphenhydramine (Benadryl Topical) 1 kumar PRN QID PRN TP ITCHING; Start 06/30/19 at 12:30; Stop 06/30/19 at 13:26; Status DC Hydromorphone HCl (Dilaudid) 0.5 mg PRN Q2HRS PRN IV SEVERE PAIN 7-10 Last administered on 07/01/19at 07:51; Start 06/30/19 at 13:30 Diphenhydramine HCl (Benadryl) 25 mg PRN Q6HRS PRN IVP ITCHING Last administered on 07/01/19at 03:19; Start 06/30/19 at 13:30 Potassium Chloride/Water 50 ml @ 50 mls/hr Q1H IV Last administered on 06/30/19at 16:56; Start 06/30/19 at 15:00; Stop 06/30/19 at 16:59; Status DC Magnesium Sulfate 100 ml @ 50 mls/hr DAILY IV ; Start 07/01/19 at 09:00; Stop 06/30/19 at 15:53; Status DC Magnesium Sulfate 100 ml @ 25 mls/hr 1X ONCE IV Last administered on 06/30at 15:43; Start 06/30/19 at 15:15; Stop 06/30/19 at 19:14; Status DC Active Scripts Active Reported Zoloft (Sertraline Hcl) 100 Mg Tablet 150 Mg PO DAILY Requip (Ropinirole Hcl) 3 Mg Tablet 2 Mg PO TID Carafate (Sucralfate) 1 Gm Tablet 1 Gm PO TID Pepcid (Famotidine) 20 Mg Tablet 20 Mg PO BID Keppra (Levetiracetam) 1,000 Mg Tablet 1,000 Mg PO BID Magnesium (Magnesium Oxide) 500 Mg Capsule 800 Mg PO TID Klor-Con 10 (Potassium Chloride) 10 Meq Tablet.er 40 Meq PO BID Vitals/I & O Vital Sign - Last 24 Hours 06/30/19 06/30/19 06/30/19 06/30/19 08:23 09:37 09:52 10:07 Temp 97.6 97.6 97.6 97.6 Pulse 73 79 85 80 Resp 20 16 18 20 B/P (MAP) 98/64 95/54 97/53 Pulse Ox 99 96 97 99 O2 Delivery Nasal Cannula Room Air Room Air 06/30/19 06/30/19 06/30/19 06/30/19 10:15 10:15 10:28 10:34 Temp 98.0 98.0 98.0 98.0 Pulse 74 79 Resp 22 22 22 B/P (MAP) 123/74 (90) 123/74 (90) Pulse Ox 99 100 100 O2 Delivery Room Air Room Air Room Air Room Air 06/30/19 06/30/19 06/30/19 06/30/19 10:44 10:46 10:46 11:00 Pulse 72 Resp 22 22 22 20 B/P (MAP) 115/64 (81) Pulse Ox 100 100 100 99 O2 Delivery Room Air Room Air Room Air Room Air 06/30/19 06/30/19 06/30/19 06/30/19 11:08 12:00 12:00 13:00 Temp 98.4 98.4 Pulse 84 72 Resp 20 20 20 B/P (MAP) 147/80 (102) 102/55 (71) Pulse Ox 100 99 94 O2 Delivery Room Air Room Air Room Air Room Air 06/30/19 06/30/19 06/30/19 06/30/19 13:05 14:00 15:00 15:11 Pulse 86 76 Resp 20 18 18 22 B/P (MAP) 109/64 (79) 112/63 (79) Pulse Ox 98 96 96 97 O2 Delivery Room Air Room Air Room Air Room Air 06/30/19 06/30/19 06/30/19 06/30/19 15:47 16:00 16:00 17:00 Temp 98.4 98.4 Pulse 74 82 Resp 22 18 16 B/P (MAP) 93/63 (73) 108/63 (78) Pulse Ox 96 97 97 O2 Delivery Room Air Room Air Room Air Room Air 06/30/19 06/30/19 06/30/19 06/30/19 17:03 17:34 18:00 18:50 Pulse 84 Resp 18 16 16 16 B/P (MAP) 125/71 (89) Pulse Ox 94 96 97 97 O2 Delivery Room Air Room Air Room Air Room Air 06/30/19 06/30/19 06/30/19 06/30/19 19:00 19:20 20:00 20:00 Temp 97.8 97.8 Pulse 78 74 Resp 16 16 B/P (MAP) 110/56 (74) 105/61 (76) Pulse Ox 91 97 91 O2 Delivery Room Air Room Air Room Air Room Air 06/30/19 06/30/19 06/30/19 06/30/19 21:00 21:11 21:41 22:00 Pulse 84 64 B/P (MAP) 92/55 (67) Pulse Ox 96 97 97 95 O2 Delivery Room Air Room Air Room Air Room Air 06/30/19 06/30/19 06/30/19 07/01/19 22:59 23:00 23:29 00:00 Pulse 84 Resp 16 B/P (MAP) 97/67 (77) Pulse Ox 97 97 97 O2 Delivery Room Air Room Air Room Air Room Air 07/01/19 07/01/19 07/01/19 07/01/19 00:04 01:00 01:05 01:35 Pulse 78 70 B/P (MAP) 87/57 (67) 87/56 (66) Pulse Ox 98 98 97 O2 Delivery Room Air High Flow Nasal Cannula Room Air High Flow Nasal Cannula O2 Flow Rate 1.5 07/01/19 07/01/19 07/01/19 07/01/19 02:00 03:00 03:15 03:45 Pulse 78 66 B/P (MAP) 82/48 (59) 87/53 (64) Pulse Ox 95 96 95 98 O2 Delivery High Flow Nasal Cannula High Flow Nasal Cannula Room Air Room Air O2 Flow Rate 1.5 1.5 1.5 1.5 07/01/19 07/01/19 07/01/19 07/01/19 04:00 04:10 05:00 05:30 Pulse 62 68 68 B/P (MAP) 101/58 (72) 84/50 (61) 93/51 (65) Pulse Ox 98 97 99 O2 Delivery Room Air High Flow Nasal Cannula High Flow Nasal Cannula High Flow Nasal Cannula O2 Flow Rate 1.5 1.5 1.5 07/01/19 07/01/19 07/01/19 07/01/19 05:41 06:00 06:11 07:00 Pulse 62 64 B/P (MAP) 86/49 (61) 86/47 (60) Pulse Ox 98 96 98 97 O2 Delivery Room Air High Flow Nasal Cannula Room Air Nasal Cannula O2 Flow Rate 1.5 1.5 1.5 1.5 07/01/19 07:51 Resp 20 Pulse Ox 97 O2 Delivery Nasal Cannula O2 Flow Rate 1.5 Intake and Output 06/30/19 06/30/19 07/01/19 15:00 23:00 07:00 Intake Total 975 ml 860 ml 805 ml Output Total 650 ml 1550 ml 1050 ml Balance 325 ml -690 ml -245 ml DARLENE ALMAGUER MD Jul 01, 2019 08:13
[2019-07-01] MEDS ORDERED: MAGNESIUM SULFATE 2GM 50 ML IV ONE (08:15)
[2019-07-01] MEDS: SUCRALFATE 1 GM TABLET. PO SCH ×4 (08:41→16:29)
[2019-07-01] MEDS: MAGNESIUM OXIDE 400 MG TABLET PO SCH ×3 (09:00→20:52)
[2019-07-01] MEDS: DOCUSATE SODIUM 100 MG CAPSULE. PO SCH ×2 (09:00→20:52)
[2019-07-01] MEDS: rOPINIRole 1 MG TABLET. PO SCH ×3 (09:00→20:52)
[2019-07-01] MEDS: SERTRALINE 50 MG TABLET. PO SCH (09:00)
[2019-07-01] MEDS: POTASSIUM CHLORIDE 10 MEQ TABLET.ER. PO SCH ×2 (09:00→20:52)
[2019-07-01] MEDS: ELECTROLYTE (ICU) PROTOCOL. MC SCH (09:00)
[2019-07-01] MEDS ORDERED: MAGNESIUM SULFATE 4GM 100 ML IV SCH (09:00)
--- NOTE | 2019-07-01 09:23 | PDOC ---
PROGRESS NOTES Subjective Subjective Gra[facility] Weigher Note No interval changes. Objective Objective Vital Signs Date Time Temp Pulse Resp B/P (MAP) Pulse Ox O2 Delivery O2 Flow Rate FiO2 07/01/19 08:41 16 93 Room Air 07/01/19 08:00 97.7 68 100/50 (67) 1.5 97.7 Intake and Output 07/01/19 07:00 Intake Total 2640 ml Output Total 3250 ml Balance -610 ml Intake Oral 0 ml IV Total 1835 ml Other 805 ml Output Urine Total 3250 ml Physical Exam Physical Exam S/NT/ND Assessment Assessment 49y who presented to the ER for LUQ pain and hematemesis. Consulted for right adnexal mass. Plan: 1.) Right adnexal mass 4 cm right adnexal. Consider u/s as outpt, low risk of malignancy. 2.) H/o dysplasia cervical ablation 2012, no abnml paps since, pt reports most recent pap was ~yr ago. 3.) Upper GI bleed/Hematemesis s/p EGD with GI, Hgb stable. 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 Labs Laboratory Tests Test 06/29/19 21:36 06/29/19 21:45 06/29/19 22:30 06/30/19 13:20 Urine Collection Type Void Urine Color Yellow Urine Clarity Clear Urine pH 7.0 Urine Specific [place] 1.020 Urine Protein Negative mg/dL (NEG-TRACE) Urine Glucose (UA) Negative mg/dL (NEG) Urine Ketones (Stick) Negative mg/dL (NEG) Urine Blood Negative (NEG) Urine Nitrite Negative (NEG) Urine Bilirubin Negative (NEG) Urine Urobilinogen Dipstick 0.2 mg/dL (0.2 mg/dL) Urine Leukocyte Esterase Moderate (NEG) Urine RBC 0 /HPF (0-2) Urine WBC 5-10 /HPF (0-4) Urine Squamous Epithelial Cells Mod /LPF Urine Bacteria Few /HPF (0-FEW) Urine Mucus Slight /LPF White Blood Count 5.8 x10^3/uL (4.0-11.0) 3.5 x10^3/uL (4.0-11.0) Red Blood Count 3.62 x10^6/uL (3.50-5.40) 3.04 x10^6/uL (3.50-5.40) Hemoglobin 10.8 g/dL (12.0-15.5) 9.1 g/dL (12.0-15.5) Hematocrit 33.2 % (36.0-47.0) 27.9 % (36.0-47.0) Mean Corpuscular Volume 92 fL (79-100) 92 fL (79-100) Mean Corpuscular Hemoglobin 30 pg (25-35) 30 pg (25-35) Mean Corpuscular Hemoglobin Concent 33 g/dL (31-37) 33 g/dL (31-37) Red Cell Distribution Width 16.4 % (11.5-14.5) 16.5 % (11.5-14.5) Platelet Count 302 x10^3/uL (140-400) 230 x10^3/uL (140-400) Neutrophils (%) (Auto) 73 % (31-73) Lymphocytes (%) (Auto) 17 % (24-48) Monocytes (%) (Auto) 8 % (0-9) Eosinophils (%) (Auto) 2 % (0-3) Basophils (%) (Auto) 1 % (0-3) Neutrophils # (Auto) 4.2 x10^3/uL (1.8-7.7) Lymphocytes # (Auto) 1.0 x10^3/uL (1.0-4.8) Monocytes # (Auto) 0.4 x10^3/uL (0.0-1.1) Eosinophils # (Auto) 0.1 x10^3/uL (0.0-0.7) Basophils # (Auto) 0.0 x10^3/uL (0.0-0.2) Sodium Level 139 mmol/L (136-145) Potassium Level 3.4 mmol/L (3.5-5.1) Chloride Level 101 mmol/L (98-107) Carbon Dioxide Level 31 mmol/L (21-32) Anion Gap 7 (6-14) Blood Urea Nitrogen 15 mg/dL (7-20) Creatinine 0.8 mg/dL (0.6-1.0) Estimated GFR (Cockcroft-Gault) 76.9 BUN/Creatinine Ratio 19 (6-20) Glucose Level 114 mg/dL (70-99) Calcium Level 9.0 mg/dL (8.5-10.1) Total Bilirubin 0.1 mg/dL (0.2-1.0) Aspartate Amino Transf (AST/SGOT) 16 U/L (15-37) Alanine Aminotransferase (ALT/SGPT) 18 U/L (14-59) Alkaline Phosphatase 77 U/L (46-116) Total Protein 7.0 g/dL (6.4-8.2) Albumin 3.6 g/dL (3.4-5.0) Albumin/Globulin Ratio 1.1 (1.0-1.7) Gastric Fluid Occult Blood Positive (NEG) Magnesium Level 1.2 mg/dL (1.8-2.4) Lipase 156 U/L (73-393) Test 06/30/19 22:00 07/01/19 04:20 White Blood Count 3.0 x10^3/uL (4.0-11.0) 2.8 x10^3/uL (4.0-11.0) Red Blood Count 2.92 x10^6/uL (3.50-5.40) 3.05 x10^6/uL (3.50-5.40) Hemoglobin 9.0 g/dL (12.0-15.5) 9.2 g/dL (12.0-15.5) Hematocrit 26.8 % (36.0-47.0) 28.2 % (36.0-47.0) Mean Corpuscular Volume 92 fL (79-100) 93 fL (79-100) Mean Corpuscular Hemoglobin 31 pg (25-35) 30 pg (25-35) Mean Corpuscular Hemoglobin Concent 34 g/dL (31-37) 33 g/dL (31-37) Red Cell Distribution Width 16.8 % (11.5-14.5) 16.8 % (11.5-14.5) Platelet Count 235 x10^3/uL (140-400) 234 x10^3/uL (140-400) Neutrophils (%) (Auto) 52 % (31-73) Lymphocytes (%) (Auto) 31 % (24-48) Monocytes (%) (Auto) 12 % (0-9) Eosinophils (%) (Auto) 5 % (0-3) Basophils (%) (Auto) 1 % (0-3) Neutrophils # (Auto) 1.5 x10^3/uL (1.8-7.7) Lymphocytes # (Auto) 0.9 x10^3/uL (1.0-4.8) Monocytes # (Auto) 0.3 x10^3/uL (0.0-1.1) Eosinophils # (Auto) 0.1 x10^3/uL (0.0-0.7) Basophils # (Auto) 0.0 x10^3/uL (0.0-0.2) Sodium Level 142 mmol/L (136-145) Potassium Level 4.1 mmol/L (3.5-5.1) Chloride Level 105 mmol/L (98-107) Carbon Dioxide Level 31 mmol/L (21-32) Anion Gap 6 (6-14) Blood Urea Nitrogen 8 mg/dL (7-20) Creatinine 0.7 mg/dL (0.6-1.0) Estimated GFR (Cockcroft-Gault) 89.7 BUN/Creatinine Ratio 11 (6-20) Glucose Level 84 mg/dL (70-99) Calcium Level 8.5 mg/dL (8.5-10.1) Magnesium Level 1.8 mg/dL (1.8-2.4) Total Bilirubin 0.2 mg/dL (0.2-1.0) Aspartate Amino Transf (AST/SGOT) 18 U/L (15-37) Alanine Aminotransferase (ALT/SGPT) 16 U/L (14-59) Alkaline Phosphatase 66 U/L (46-116) Total Protein 5.8 g/dL (6.4-8.2) Albumin 3.0 g/dL (3.4-5.0) Albumin/Globulin Ratio 1.1 (1.0-1.7) Laboratory Tests Test 06/30/19 13:20 06/30/19 22:00 07/01/19 04:20 White Blood Count 3.5 x10^3/uL (4.0-11.0) 3.0 x10^3/uL (4.0-11.0) 2.8 x10^3/uL (4.0-11.0) Red Blood Count 3.04 x10^6/uL (3.50-5.40) 2.92 x10^6/uL (3.50-5.40) 3.05 x10^6/uL (3.50-5.40) Hemoglobin 9.1 g/dL (12.0-15.5) 9.0 g/dL (12.0-15.5) 9.2 g/dL (12.0-15.5) Hematocrit 27.9 % (36.0-47.0) 26.8 % (36.0-47.0) 28.2 % (36.0-47.0) Mean Corpuscular Volume 92 fL (79-100) 92 fL (79-100) 93 fL (79-100) Mean Corpuscular Hemoglobin 30 pg (25-35) 31 pg (25-35) 30 pg (25-35) Mean Corpuscular Hemoglobin Concent 33 g/dL (31-37) 34 g/dL (31-37) 33 g/dL (31-37) Red Cell Distribution Width 16.5 % (11.5-14.5) 16.8 % (11.5-14.5) 16.8 % (11.5-14.5) Platelet Count 230 x10^3/uL (140-400) 235 x10^3/uL (140-400) 234 x10^3/uL (140-400) Magnesium Level 1.2 mg/dL (1.8-2.4) 1.8 mg/dL (1.8-2.4) Lipase 156 U/L (73-393) Neutrophils (%) (Auto) 52 % (31-73) Lymphocytes (%) (Auto) 31 % (24-48) Monocytes (%) (Auto) 12 % (0-9) Eosinophils (%) (Auto) 5 % (0-3) Basophils (%) (Auto) 1 % (0-3) Neutrophils # (Auto) 1.5 x10^3/uL (1.8-7.7) Lymphocytes # (Auto) 0.9 x10^3/uL (1.0-4.8) Monocytes # (Auto) 0.3 x10^3/uL (0.0-1.1) Eosinophils # (Auto) 0.1 x10^3/uL (0.0-0.7) Basophils # (Auto) 0.0 x10^3/uL (0.0-0.2) Sodium Level 142 mmol/L (136-145) Potassium Level 4.1 mmol/L (3.5-5.1) Chloride Level 105 mmol/L (98-107) Carbon Dioxide Level 31 mmol/L (21-32) Anion Gap 6 (6-14) Blood Urea Nitrogen 8 mg/dL (7-20) Creatinine 0.7 mg/dL (0.6-1.0) Estimated GFR (Cockcroft-Gault) 89.7 BUN/Creatinine Ratio 11 (6-20) Glucose Level 84 mg/dL (70-99) Calcium Level 8.5 mg/dL (8.5-10.1) Total Bilirubin 0.2 mg/dL (0.2-1.0) Aspartate Amino Transf (AST/SGOT) 18 U/L (15-37) Alanine Aminotransferase (ALT/SGPT) 16 U/L (14-59) Alkaline Phosphatase 66 U/L (46-116) Total Protein 5.8 g/dL (6.4-8.2) Albumin 3.0 g/dL (3.4-5.0) Albumin/Globulin Ratio 1.1 (1.0-1.7) Medications Current Medications Sodium Chloride 1,000 ml @ 1,000 mls/hr 1X ONCE IV Last administered on 06/29/19at 22:11; Start 06/29/19 at 22:00; Stop 06/29/19 at 22:59; Status DC Pantoprazole Sodium 80 mg/ Sodium Chloride 100 ml @ 10 mls/hr Q10H IV Last administered on 06/30/19at 21:21; Start 06/29/19 at 23:00; Stop 07/01/19 at 09:17; Status DC Pantoprazole Sodium (PROTONIX VIAL for IV PUSH) 80 mg 1X ONCE IVP Last administered on 06/29/19at 22:11; Start 06/29/19 at 22:30; Stop 06/29/19 at 22:31; Status DC Ondansetron HCl (Zofran) 4 mg 1X ONCE IV Last administered on 06/29/19at 22:11; Start 06/29/19 at 22:30; Stop 06/29/19 at 22:31; Status DC Hydromorphone HCl (Dilaudid) 1 mg 1X ONCE IV Last administered on 06/29/19at 2 2:28; Start 06/29/19 at 23:00; Stop 06/29/19 at 23:01; Status DC Hydromorphone HCl (Dilaudid) 1 mg 1X ONCE IV Last administered on 06/30/19at 00:33; Start 06/30/19 at 01:00; Stop 06/30/19 at 01:01; Status DC Ondansetron HCl (Zofran) 4 mg 1X ONCE IV Last administered on 06/30/19at 00:33; Start 06/30/19 at 01:00; Stop 06/30/19 at 01:01; Status DC Ondansetron HCl (Zofran) 4 mg PRN Q8HRS PRN IV NAUSEA/VOMITING 1ST CHOICE Last administered on 06/30/19at 22:48; Start 06/30/19 at 01:00; Stop 07/01/19 at 00:59; Status DC Sodium Chloride 1,000 ml @ 100 mls/hr 1X ONCE IV Last administered on 06/30/19at 01:30; Start 06/30/19 at 01:30; Stop 06/30/19 at 11:29; Status DC Hydromorphone HCl (Dilaudid) 1 mg PRN Q4HRS PRN IV SEVERE PAIN 7-10 Last admin istered on 06/30/19at 11:08; Start 06/30/19 at 01:15; Stop 06/30/19 at 13:26; Status DC Propofol 20 ml @ As Directed STK-MED ONCE IV ; Start 06/30/19 at 09:13; Stop 06/30/19 at 09:14; Status DC Sodium Chloride 1,000 ml @ 75 mls/hr [id number] IV Last administered on 06/30/19at 11:08; Start 06/30/19 at 10:45; Stop 06/30/19 at 11:21; Status DC Sucralfate (Carafate) 1 gm TIDBFRMEAL PO ; Start 06/30/19 at 11:30 Levetiracetam (Keppra) 1,000 mg BID PO ; Start 06/30/19 at 12:00; Status Cancel Magnesium Oxide (Magnesium Oxide) 800 mg TID PO ; Start 07/01/19 at 09:00 Potassium Chloride (Klor-Con) 40 meq BID PO ; Start 06/30/19 at 12:00 Ropinirole HCl (Requip) 2 mg TID PO ; Start 06/30/19 at 14:00 Sertraline HCl (Zoloft) 150 mg DAILY PO ; Start 06/30/19 at 12:00 Acetaminophen (Tylenol) 650 mg Q6H PRN PO Headaches, Temp > 101.5'; Start 06/30/19 at 11:15 Lorazepam (Ativan Inj) 0.5 mg PRN Q6HRS PRN IV ANXIETY / AGITATION; Start 06/30/19 at 11:15 Ondansetron HCl (Zofran) 4 mg PRN Q6HRS PRN IV NAUSEA/VOMITING Last administered on 07/01/19at 05:40; Start 06/30/19 at 11:15 Zolpidem Tartrate (Ambien) 5 mg PRN QHS PRN PO INSOMNIA, MAY REPEAT IN 1HR; Start 06/30/19 at 11:15 Info (Icu Electrolyte Protocol) 1 ea DAILY MC ; Start 07/01/19 at 09:00 Sodium Chloride (Normal Saline Flush) 3 ml QSHIFT PRN IV AFTER MEDS AND BLOOD DRAWS; Start 06/30/19 at 11:15 Potassium Chloride/Sodium Chloride 1,000 ml @ 100 mls/hr Q10H IV Last administered on 06/30/19at 23:45; Start 06/30/19 at 11:04 Fentanyl Citrate (Fentanyl 2ml Vial) 50 mcg PRN Q1HR PRN IV SEVERE PAIN 7-10; Start 06/30/19 at 11:15 Docusate Sodium (Colace) 100 mg BID PO ; Start 06/30/19 at 21:00 Bisacodyl (Dulcolax Supp) 10 mg PRN DAILY PRN TN CONSTIPATION; Start 06/30/19 at 11:15 Ceftriaxone Sodium (Rocephin) 1 gm Q24H IVP Last administered on 06/30/19at 11:48; Start 06/30/19 at 12:00 Levetiracetam 1000 mg/Dextrose 110 ml @ 440 mls/hr Q12HR IV Last administered on 06/30/19at 21:20; Start 06/30/19 at 12:00 Zinc Acetate/ Diphenhydramine (Benadryl Topical) 1 kumar PRN QID PRN TP ITCHING; Start 06/30/19 at 12:30; Stop 06/30/19 at 13:26; Status DC Hydromorphone HCl (Dilaudid) 0.5 mg PRN Q2HRS PRN IV SEVERE PAIN 7-10 Last administered on 07/01/19at 07:51; Start 06/30/19 at 13:30 Diphenhydramine HCl (Benadryl) 25 mg PRN Q6HRS PRN IVP ITCHING Last administered on 07/01/19at 03:19; Start 06/30/19 at 13:30 Potassium Chloride/Water 50 ml @ 50 mls/hr Q1H IV Last administered on 06/30/19at 16:56; Start 06/30/19 at 15:00; Stop 06/30/19 at 16:59; Status DC Magnesium Sulfate 100 ml @ 50 mls/hr DAILY IV ; Start 07/01/19 at 09:00; Stop 06/30/19 at 15:53; Status DC Magnesium Sulfate 100 ml @ 25 mls/hr 1X ONCE IV Last administered on 06/30/19at 15:43; Start 06/30/19 at 15:15; Stop 06/30/19 at 19:14; Status DC Magnesium Sulfate 50 ml @ 25 mls/hr 1X ONCE IV Last administered on 07/01/19at 08:41; Start 07/01/19 at 08:15; Stop 07/01/19 at 10:14 Pantoprazole Sodium (PROTONIX VIAL for IV PUSH) 40 mg 1X ONCE IVP ; Start 07/01/19 at 09:30; Stop 07/01/19 at 09:31; Status UNV Pantoprazole Sodium (Protonix) 40 mg DAILYAC PO ; Start 07/02/19 at 07:30; Status UNV Active Scripts Active Reported Zoloft (Sertraline Hcl) 100 Mg Tablet 150 Mg PO DAILY Requip (Ropinirole Hcl) 3 Mg Tablet 2 Mg PO TID Carafate (Sucralfate) 1 Gm Tablet 1 Gm PO TID Pepcid (Famotidine) 20 Mg Tablet 20 Mg PO BID Keppra (Levetiracetam) 1,000 Mg Tablet 1,000 Mg PO BID Magnesium (Magnesium Oxide) 500 Mg Capsule 800 Mg PO TID Klor-Con 10 (Potassium Chloride) 10 Meq Tablet.er 40 Meq PO BID Vitals/I & O Vital Sign - Last 24 Hours 06/30/19 06/30/19 06/30/19 06/30/19 09:37 09:52 10:07 10:15 Temp 97.6 97.6 Pulse 79 85 80 Resp 16 18 20 B/P (MAP) 98/64 95/54 97/53 Pulse Ox 96 97 99 O2 Delivery Nasal Cannula Room Air Room Air Room Air 06/30/19 06/30/19 06/30/19 06/30/19 10:15 10:28 10:34 10:44 Temp 98.0 98.0 98.0 98.0 Pulse 74 79 Resp 22 22 22 22 B/P (MAP) 123/74 (90) 123/74 (90) Pulse Ox 99 100 100 100 O2 Delivery Room Air Room Air Room Air Room Air 06/30/19 06/30/19 06/30/19 06/30/19 10:46 10:46 11:00 11:08 Pulse 72 Resp 22 22 20 20 B/P (MAP) 115/64 (81) Pulse Ox 100 100 99 100 O2 Delivery Room Air Room Air Room Air Room Air 06/30/19 06/30/19 06/30/19 06/30/19 12:00 12:00 13:00 13:05 Temp 98.4 98.4 Pulse 84 72 Resp 20 20 20 B/P (MAP) 147/80 (102) 102/55 (71) Pulse Ox 99 94 98 O2 Delivery Room Air Room Air Room Air Room Air 06/30/19 06/30/19 06/30/19 06/30/19 14:00 15:00 15:11 15:47 Pulse 86 76 Resp 18 18 22 22 B/P (MAP) 109/64 (79) 112/63 (79) Pulse Ox 96 96 97 96 O2 Delivery Room Air Room Air Room Air Room Air 1206/30/19 06/30/19 06/30/19 16:00 16:00 17:00 17:03 Temp 98.4 98.4 Pulse 74 82 Resp 18 16 18 B/P (MAP) 93/63 (73) 108/63 (78) Pulse Ox 97 97 94 O2 Delivery Room Air Room Air Room Air Room Air 06/30/19 06/30/19 06/30/19 06/30/19 17:34 18:00 18:50 19:00 Temp 97.8 97.8 Pulse 84 78 Resp 16 16 16 16 B/P (MAP) 125/71 (89) 110/56 (74) Pulse Ox 96 97 97 91 O2 Delivery Room Air Room Air Room Air Room Air 06/30/19 06/30/19 06/30/19 06/30/19 19:20 20:00 20:00 21:00 Pulse 74 84 Resp 16 B/P (MAP) 105/61 (76) Pulse Ox 97 91 96 O2 Delivery Room Air Room Air Room Air Room Air 06/30/19 06/30/19 06/30/19 06/30/19 21:11 21:41 22:00 22:59 Pulse 64 B/P (MAP) 92/55 (67) Pulse Ox 97 97 95 97 O2 Delivery Room Air Room Air Room Air Room Air 06/30/19 06/30/19 07/01/19 07/01/19 23:00 23:29 00:00 00:04 Pulse 84 78 Resp 16 B/P (MAP) 97/67 (77) 87/57 (67) Pulse Ox 97 97 98 O2 Delivery Room Air Room Air Room Air Room Air 07/01/19 07/01/19 07/01/19 07/01/19 01:00 01:05 01:35 02:00 Pulse 70 78 B/P (MAP) 87/56 (66) 82/48 (59) Pulse Ox 98 97 95 O2 Delivery High Flow Nasal Cannula Room Air High Flow Nasal Cannula High Flow Nasal Cannula O2 Flow Rate 1.5 1.5 07/01/19 07/01/19 07/01/19 07/01/19 03:00 03:15 03:45 04:00 Pulse 66 B/P (MAP) 87/53 (64) Pulse Ox 96 95 98 O2 Delivery High Flow Nasal Cannula Room Air Room Air Room Air O2 Flow Rate 1.5 1.5 1.5 07/01/19 07/01/19 07/01/19 07/01/19 04:10 05:00 05:30 05:41 Pulse 62 68 68 B/P (MAP) 101/58 (72) 84/50 (61) 93/51 (65) Pulse Ox 98 97 99 98 O2 Delivery High Flow Nasal Cannula High Flow Nasal Cannula High Flow Nasal Cannula Room Air O2 Flow Rate 1.5 1.5 1.5 1.5 07/01/19 07/01/19 07/01/19 07/01/19 06:00 06:11 07:00 07:51 Pulse 62 64 Resp 20 B/P (MAP) 86/49 (61) 86/47 (60) Pulse Ox 96 98 97 97 O2 Delivery High Flow Nasal Cannula Room Air Nasal Cannula Nasal Cannula O2 Flow Rate 1.5 1.5 1.5 1.5 07/01/19 07/01/19 07/01/19 08:00 08:00 08:41 Temp 97.7 97.7 Pulse 68 Resp 16 B/P (MAP) 100/50 (67) Pulse Ox 94 93 O2 Delivery Room Air Nasal Cannula Room Air O2 Flow Rate 1.5 Intake and Output 06/30/19 06/30/19 07/01/19 15:00 23:00 07:00 Intake Total 975 ml 860 ml 805 ml Output Total 650 ml 1550 ml 1050 ml Balance 325 ml -690 ml -245 ml DIANNA CASH MD Jul 01, 2019 09:23
[2019-07-01] MEDS ORDERED: PANTOPRAZOLE IV PUSH 40 MG VIAL. IVP ONE (09:30)
--- NOTE | 2019-07-01 09:43 | PDOC ---
Subjective: Subjective: LUQ pain is the same. Little blood w/ vomiting last evening. Objective: Objective: D/w nurse - ongoing pain, had a little emesis w/ small clot overnight, getting Zofran. D/w Dr. Sutherland this morning, also d/w Dr. Linder yesterday. Vital Signs: Vital Signs Date Time Temp Pulse Resp B/P (MAP) Pulse Ox O2 Delivery O2 Flow Rate FiO2 07/01/19 08:41 16 93 Room Air 07/01/19 08:00 97.7 68 100/50 (67) 1.5 97.7 Labs: Laboratory Tests Test 06/30/19 13:20 06/30/19 22:00 07/01/19 04:20 White Blood Count 3.5 x10^3/uL 3.0 x10^3/uL 2.8 x10^3/uL Red Blood Count 3.04 x10^6/uL 2.92 x10^6/uL 3.05 x10^6/uL Hemoglobin 9.1 g/dL 9.0 g/dL 9.2 g/dL Hematocrit 27.9 % 26.8 % 28.2 % Mean Corpuscular Volume 92 fL 92 fL 93 fL Mean Corpuscular Hemoglobin 30 pg 31 pg 30 pg Mean Corpuscular Hemoglobin Concent 33 g/dL 34 g/dL 33 g/dL Red Cell Distribution Width 16.5 % 16.8 % 16.8 % Platelet Count 230 x10^3/uL 235 x10^3/uL 234 x10^3/uL Magnesium Level 1.2 mg/dL 1.8 mg/dL Lipase 156 U/L Neutrophils (%) (Auto) 52 % Lymphocytes (%) (Auto) 31 % Monocytes (%) (Auto) 12 % Eosinophils (%) (Auto) 5 % Basophils (%) (Auto) 1 % Neutrophils # (Auto) 1.5 x10^3/uL Lymphocytes # (Auto) 0.9 x10^3/uL Monocytes # (Auto) 0.3 x10^3/uL Eosinophils # (Auto) 0.1 x10^3/uL Basophils # (Auto) 0.0 x10^3/uL Sodium Level 142 mmol/L Potassium Level 4.1 mmol/L Chloride Level 105 mmol/L Carbon Dioxide Level 31 mmol/L Anion Gap 6 Blood Urea Nitrogen 8 mg/dL Creatinine 0.7 mg/dL Estimated GFR (Cockcroft-Gault) 89.7 BUN/Creatinine Ratio 11 Glucose Level 84 mg/dL Calcium Level 8.5 mg/dL Total Bilirubin 0.2 mg/dL Aspartate Amino Transf (AST/SGOT) 18 U/L Alanine Aminotransferase (ALT/SGPT) 16 U/L Alkaline Phosphatase 66 U/L Total Protein 5.8 g/dL Albumin 3.0 g/dL Albumin/Globulin Ratio 1.1 Imaging: EGD 06/30/19 carida ulcer with prior endo-clips in gastric cardia embolization coil eroding into lumen as well PE: GEN: NAD LUNGS: NC 1.5L HEART: RRR ABD: soft, LUQ discomfort NEURO/PSYCH: A & O 3 A/P: Hematemesis w/ endo-clips in place and coil eroding into lumen Anemia - stable -- Reviewed w/ Dr. Ni remy to advance diet and consider DC if tolerates - lives in [place]. On PO PPI, continue. PAGE HOPPER Jul 01, 2019 09:43
--- NOTE | 2019-07-01 10:11 | PDOC ---
[facility] TRANSITION OF CARE SPECIALIST 07/01/19 1011: SURGICAL PROGRESS NOTE Subjective emesis x 1 overnight Vital Signs Vital Signs Date Time Temp Pulse Resp B/P (MAP) Pulse Ox O2 Delivery O2 Flow Rate FiO2 07/01/19 09:47 16 94 Room Air 07/01/19 08:00 97.7 68 100/50 (67) 1.5 97.7 I&O Intake and Output 07/01/19 07:00 Intake Total 2640 ml Output Total 3250 ml Balance -610 ml Intake Oral 0 ml IV Total 1835 ml Other 805 ml Output Urine Total 3250 ml General: Alert, Cooperative Abdomen: Soft, Other (ttp luq) Labs Laboratory Tests Test 06/29/19 21:36 06/29/19 21:45 06/29/19 22:30 06/30/19 13:20 Urine Collection Type Void Urine Color Yellow Urine Clarity Clear Urine pH 7.0 Urine Specific [place] 1.020 Urine Protein Negative mg/dL (NEG-TRACE) Urine Glucose (UA) Negative mg/dL (NEG) Urine Ketones (Stick) Negative mg/dL (NEG) Urine Blood Negative (NEG) Urine Nitrite Negative (NEG) Urine Bilirubin Negative (NEG) Urine Urobilinogen Dipstick 0.2 mg/dL (0.2 mg/dL) Urine Leukocyte Esterase Moderate (NEG) Urine RBC 0 /HPF (0-2) Urine WBC 5-10 /HPF (0-4) Urine Squamous Epithelial Cells Mod /LPF Urine Bacteria Few /HPF (0-FEW) Urine Mucus Slight /LPF White Blood Count 5.8 x10^3/uL (4.0-11.0) 3.5 x10^3/uL (4.0-11.0) Red Blood Count 3.62 x10^6/uL (3.50-5.40) 3.04 x10^6/uL (3.50-5.40) Hemoglobin 10.8 g/dL (12.0-15.5) 9.1 g/dL (12.0-15.5) Hematocrit 33.2 % (36.0-47.0) 27.9 % (36.0-47.0) Mean Corpuscular Volume 92 fL (79-100) 92 fL (79-100) Mean Corpuscular Hemoglobin 30 pg (25-35) 30 pg (25-35) Mean Corpuscular Hemoglobin Concent 33 g/dL (31-37) 33 g/dL (31-37) Red Cell Distribution Width 16.4 % (11.5-14.5) 16.5 % (11.5-14.5) Platelet Count 302 x10^3/uL (140-400) 230 x10^3/uL (140-400) Neutrophils (%) (Auto) 73 % (31-73) Lymphocytes (%) (Auto) 17 % (24-48) Monocytes (%) (Auto) 8 % (0-9) Eosinophils (%) (Auto) 2 % (0-3) Basophils (%) (Auto) 1 % (0-3) Neutrophils # (Auto) 4.2 x10^3/uL (1.8-7.7) Lymphocytes # (Auto) 1.0 x10^3/uL (1.0-4.8) Monocytes # (Auto) 0.4 x10^3/uL (0.0-1.1) Eosinophils # (Auto) 0.1 x10^3/uL (0.0-0.7) Basophils # (Auto) 0.0 x10^3/uL (0.0-0.2) Sodium Level 139 mmol/L (136-145) Potassium Level 3.4 mmol/L (3.5-5.1) Chloride Level 101 mmol/L (98-107) Carbon Dioxide Level 31 mmol/L (21-32) Anion Gap 7 (6-14) Blood Urea Nitrogen 15 mg/dL (7-20) Creatinine 0.8 mg/dL (0.6-1.0) Estimated GFR (Cockcroft-Gault) 76.9 BUN/Creatinine Ratio 19 (6-20) Glucose Level 114 mg/dL (70-99) Calcium Level 9.0 mg/dL (8.5-10.1) Total Bilirubin 0.1 mg/dL (0.2-1.0) Aspartate Amino Transf (AST/SGOT) 16 U/L (15-37) Alanine Aminotransferase (ALT/SGPT) 18 U/L (14-59) Alkaline Phosphatase 77 U/L (46-116) Total Protein 7.0 g/dL (6.4-8.2) Albumin 3.6 g/dL (3.4-5.0) Albumin/Globulin Ratio 1.1 (1.0-1.7) Gastric Fluid Occult Blood Positive (NEG) Magnesium Level 1.2 mg/dL (1.8-2.4) Lipase 156 U/L (73-393) Test 06/30/19 22:00 07/01/19 04:20 White Blood Count 3.0 x10^3/uL (4.0-11.0) 2.8 x10^3/uL (4.0-11.0) Red Blood Count 2.92 x10^6/uL (3.50-5.40) 3.05 x10^6/uL (3.50-5.40) Hemoglobin 9.0 g/dL (12.0-15.5) 9.2 g/dL (12.0-15.5) Hematocrit 26.8 % (36.0-47.0) 28.2 % (36.0-47.0) Mean Corpuscular Volume 92 fL (79-100) 93 fL (79-100) Mean Corpuscular Hemoglobin 31 pg (25-35) 30 pg (25-35) Mean Corpuscular Hemoglobin Concent 34 g/dL (31-37) 33 g/dL (31-37) Red Cell Distribution Width 16.8 % (11.5-14.5) 16.8 % (11.5-14.5) Platelet Count 235 x10^3/uL (140-400) 234 x10^3/uL (140-400) Neutrophils (%) (Auto) 52 % (31-73) Lymphocytes (%) (Auto) 31 % (24-48) Monocytes (%) (Auto) 12 % (0-9) Eosinophils (%) (Auto) 5 % (0-3) Basophils (%) (Auto) 1 % (0-3) Neutrophils # (Auto) 1.5 x10^3/uL (1.8-7.7) Lymphocytes # (Auto) 0.9 x10^3/uL (1.0-4.8) Monocytes # (Auto) 0.3 x10^3/uL (0.0-1.1) Eosinophils # (Auto) 0.1 x10^3/uL (0.0-0.7) Basophils # (Auto) 0.0 x10^3/uL (0.0-0.2) Sodium Level 142 mmol/L (136-145) Potassium Level 4.1 mmol/L (3.5-5.1) Chloride Level 105 mmol/L (98-107) Carbon Dioxide Level 31 mmol/L (21-32) Anion Gap 6 (6-14) Blood Urea Nitrogen 8 mg/dL (7-20) Creatinine 0.7 mg/dL (0.6-1.0) Estimated GFR (Cockcroft-Gault) 89.7 BUN/Creatinine Ratio 11 (6-20) Glucose Level 84 mg/dL (70-99) Calcium Level 8.5 mg/dL (8.5-10.1) Magnesium Level 1.8 mg/dL (1.8-2.4) Total Bilirubin 0.2 mg/dL (0.2-1.0) Aspartate Amino Transf (AST/SGOT) 18 U/L (15-37) Alanine Aminotransferase (ALT/SGPT) 16 U/L (14-59) Alkaline Phosphatase 66 U/L (46-116) Total Protein 5.8 g/dL (6.4-8.2) Albumin 3.0 g/dL (3.4-5.0) Albumin/Globulin Ratio 1.1 (1.0-1.7) Laboratory Tests Test 06/30/19 13:20 06/30/19 22:00 07/01/19 04:20 White Blood Count 3.5 x10^3/uL (4.0-11.0) 3.0 x10^3/uL (4.0-11.0) 2.8 x10^3/uL (4.0-11.0) Red Blood Count 3.04 x10^6/uL (3.50-5.40) 2.92 x10^6/uL (3.50-5.40) 3.05 x10^6/uL (3.50-5.40) Hemoglobin 9.1 g/dL (12.0-15.5) 9.0 g/dL (12.0-15.5) 9.2 g/dL (12.0-15.5) Hematocrit 27.9 % (36.0-47.0) 26.8 % (36.0-47.0) 28.2 % (36.0-47.0) Mean Corpuscular Volume 92 fL (79-100) 92 fL (79-100) 93 fL (79-100) Mean Corpuscular Hemoglobin 30 pg (25-35) 31 pg (25-35) 30 pg (25-35) Mean Corpuscular Hemoglobin Concent 33 g/dL (31-37) 34 g/dL (31-37) 33 g/dL (31-37) Red Cell Distribution Width 16.5 % (11.5-14.5) 16.8 % (11.5-14.5) 16.8 % (11.5-14.5) Platelet Count 230 x10^3/uL (140-400) 235 x10^3/uL (140-400) 234 x10^3/uL (140-400) Magnesium Level 1.2 mg/dL (1.8-2.4) 1.8 mg/dL (1.8-2.4) Lipase 156 U/L (73-393) Neutrophils (%) (Auto) 52 % (31-73) Lymphocytes (%) (Auto) 31 % (24-48) Monocytes (%) (Auto) 12 % (0-9) Eosinophils (%) (Auto) 5 % (0-3) Basophils (%) (Auto) 1 % (0-3) Neutrophils # (Auto) 1.5 x10^3/uL (1.8-7.7) Lymphocytes # (Auto) 0.9 x10^3/uL (1.0-4.8) Monocytes # (Auto) 0.3 x10^3/uL (0.0-1.1) Eosinophils # (Auto) 0.1 x10^3/uL (0.0-0.7) Basophils # (Auto) 0.0 x10^3/uL (0.0-0.2) Sodium Level 142 mmol/L (136-145) Potassium Level 4.1 mmol/L (3.5-5.1) Chloride Level 105 mmol/L (98-107) Carbon Dioxide Level 31 mmol/L (21-32) Anion Gap 6 (6-14) Blood Urea Nitrogen 8 mg/dL (7-20) Creatinine 0.7 mg/dL (0.6-1.0) Estimated GFR (Cockcroft-Gault) 89.7 BUN/Creatinine Ratio 11 (6-20) Glucose Level 84 mg/dL (70-99) Calcium Level 8.5 mg/dL (8.5-10.1) Total Bilirubin 0.2 mg/dL (0.2-1.0) Aspartate Amino Transf (AST/SGOT) 18 U/L (15-37) Alanine Aminotransferase (ALT/SGPT) 16 U/L (14-59) Alkaline Phosphatase 66 U/L (46-116) Total Protein 5.8 g/dL (6.4-8.2) Albumin 3.0 g/dL (3.4-5.0) Albumin/Globulin Ratio 1.1 (1.0-1.7) Assessment/Plan hgb stable will review with RITIKA Funez MD 07/01/19 1438: SURGICAL PROGRESS NOTE Assessment/Plan Pt seen and examined. Agree with Ms. Dexter's note Pt with c/o mild pain and one small emesis abd soft, ND, NTTP cont supportive care, poor surgical candidate [facility] DEXTER APRN Jul 01, 2019 10:11 RITIKA SALGADO MD Jul 01, 2019 14:38
[2019-07-01] MEDS: levETIRAcetam 1,000 MG in IV DEXTROSE 5% 100ML 100 ML IV SCH ×2 (10:37→20:46)
--- NOTE | 2019-07-01 10:56 | NUR ---
SS following for discharge planning. SS reviewed pt chart. Pt is from home and is currently on room air. Pt is self pay pt. HCFS following for self pay status. SS will continue to follow for discharge planning.
[2019-07-01] MEDS: cefTRIAXone IV Push 1 GM VIAL. IVP SCH (11:52)
[2019-07-01 15:16] LABS: HEMATOCRIT 27.6 % (36.0-47.0); HEMOGLOBIN 9.2 g/dL (12.0-15.5); RED CELL DISTRIBUTION WIDTH 16.7 % (11.5-14.5); WHITE BLOOD COUNT 3.8 x10^3/uL (4.0-11.0)
[2019-07-01] MEDS: PANTOPRAZOLE IV PUSH 40 MG VIAL. IVP SCH (18:18)
[2019-07-01] MEDS: LACTOBACILLUS RHAMNOSUS GG 1 CAPSULE. PO SCH (20:51)
[2019-07-02] MEDS: HYDROmorphone 2 MG/ML VIAL IV PRN ×7 (01:09→14:23)
[2019-07-02 03:00] VITALS: BP 112/71
[2019-07-02] MEDS ORDERED: ONDANSETRON PF 4 MG/2 ML VIAL. IVP PRN (03:15)
[2019-07-02] MEDS ORDERED: PROMETHAZINE 12.5 MG TABLET. PO PRN (03:15)
[2019-07-02] MEDS: ONDANSETRON PF 4 MG/2 ML VIAL. IV PRN ×2 (03:30→10:05)
[2019-07-02] MEDS: diphenhydrAMINE 50 MG/ML VIAL IVP PRN ×2 (05:38→12:11)
[2019-07-02 06:08] LABS: BASO % 1 % (0-3); EOS # 0.1 x10^3/uL (0.0-0.7); EOS % 4 % (0-3); HEMATOCRIT 25.3 % (36.0-47.0); HEMOGLOBIN 8.4 g/dL (12.0-15.5); LYMPH # 0.9 x10^3/uL (1.0-4.8); LYMPH % 26 % (24-48); MEAN CORPUSCULAR HEMOGLOBIN 31 pg (25-35); MEAN CORPUSCULAR HGB CONC 33 g/dL (31-37); MEAN CORPUSCULAR VOLUME 92 fL (79-100); MONO # 0.4 x10^3/uL (0.0-1.1); MONO % 12 % (0-9); NEUT % 57 % (31-73); PLATELET COUNT 232 x10^3/uL (140-400); RED BLOOD COUNT 2.74 x10^6/uL (3.50-5.40); RED CELL DISTRIBUTION WIDTH 16.6 % (11.5-14.5); WHITE BLOOD COUNT 3.5 x10^3/uL (4.0-11.0)
[2019-07-02 07:00] VITALS: BP 120/63
[2019-07-02] MEDS: ELECTROLYTE (ICU) PROTOCOL. MC SCH (07:16)
[2019-07-02] MEDS: DOCUSATE SODIUM 100 MG CAPSULE. PO SCH (07:17)
[2019-07-02] MEDS: LACTOBACILLUS RHAMNOSUS GG 1 CAPSULE. PO SCH (07:17)
[2019-07-02] MEDS: POTASSIUM CHLORIDE 10 MEQ TABLET.ER. PO SCH (07:17)
[2019-07-02] MEDS: MAGNESIUM OXIDE 400 MG TABLET PO SCH ×2 (07:17→11:41)
[2019-07-02] MEDS: rOPINIRole 1 MG TABLET. PO SCH ×2 (07:17→14:00)
[2019-07-02] MEDS: SERTRALINE 50 MG TABLET. PO SCH (07:17)
[2019-07-02] MEDS: SUCRALFATE 1 GM TABLET. PO SCH ×2 (07:18→11:30)
[2019-07-02] MEDS ORDERED: PANTOPRAZOLE 40 MG TABLET.DR. PO SCH (07:30)
[2019-07-02] MEDS: levETIRAcetam 1,000 MG in IV DEXTROSE 5% 100ML 100 ML IV SCH (08:24)
[2019-07-02] MEDS: PANTOPRAZOLE IV PUSH 40 MG VIAL. IVP SCH (08:24)
--- NOTE | 2019-07-02 09:28 | PDOC ---
PROGRESS NOTES Subjective Subjective Pt resting. Pt with hematemesis overnight Objective Objective Vital Signs Date Time Temp Pulse Resp B/P (MAP) Pulse Ox O2 Delivery O2 Flow Rate FiO2 07/02/19 05:55 16 94 Room Air 1.5 07/02/19 03:00 98.2 97 112/71 (85) 98.2 Intake and Output 07/02/19 07:00 Intake Total 2614.85 ml Output Total 275 ml Balance 2339.85 ml Intake Oral 356 ml IV Total 2258.85 ml Output Urine Total 275 ml # Voids 3 Assessment Assessment 49y who presented to the ER for LUQ pain and hematemesis. Consulted for right adnexal mass. Plan: 1.) Right adnexal mass 4 cm right adnexal. Plan for outpt eval, will sign off at this time. 2.) H/o dysplasia cervical ablation 2012, no abnml paps since, pt reports most recent pap was ~yr ago. 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 Labs Laboratory Tests Test 06/30/19 13:20 06/30/19 22:00 07/01/19 04:20 07/01/19 15:00 White Blood Count 3.5 x10^3/uL (4.0-11.0) 3.0 x10^3/uL (4.0-11.0) 2.8 x10^3/uL (4.0-11.0) 3.8 x10^3/uL (4.0-11.0) Red Blood Count 3.04 x10^6/uL (3.50-5.40) 2.92 x10^6/uL (3.50-5.40) 3.05 x10^6/uL (3.50-5.40) 3.00 x10^6/uL (3.50-5.40) Hemoglobin 9.1 g/dL (12.0-15.5) 9.0 g/dL (12.0-15.5) 9.2 g/dL (12.0-15.5) 9.2 g/dL (12.0-15.5) Hematocrit 27.9 % (36.0-47.0) 26.8 % (36.0-47.0) 28.2 % (36.0-47.0) 27.6 % (36.0-47.0) Mean Corpuscular Volume 92 fL (79-100) 92 fL (79-100) 93 fL (79-100) 92 fL (79-100) Mean Corpuscular Hemoglobin 30 pg (25-35) 31 pg (25-35) 30 pg (25-35) 31 pg (25-35) Mean Corpuscular Hemoglobin Concent 33 g/dL (31-37) 34 g/dL (31-37) 33 g/dL (31-37) 33 g/dL (31-37) Red Cell Distribution Width 16.5 % (11.5-14.5) 16.8 % (11.5-14.5) 16.8 % (11.5-14.5) 16.7 % (11.5-14.5) Platelet Count 230 x10^3/uL (140-400) 235 x10^3/uL (140-400) 234 x10^3/uL (140-400) 250 x10^3/uL (140-400) Magnesium Level 1.2 mg/dL (1.8-2.4) 1.8 mg/dL (1.8-2.4) Lipase 156 U/L (73-393) Neutrophils (%) (Auto) 52 % (31-73) Lymphocytes (%) (Auto) 31 % (24-48) Monocytes (%) (Auto) 12 % (0-9) Eosinophils (%) (Auto) 5 % (0-3) Basophils (%) (Auto) 1 % (0-3) Neutrophils # (Auto) 1.5 x10^3/uL (1.8-7.7) Lymphocytes # (Auto) 0.9 x10^3/uL (1.0-4.8) Monocytes # (Auto) 0.3 x10^3/uL (0.0-1.1) Eosinophils # (Auto) 0.1 x10^3/uL (0.0-0.7) Basophils # (Auto) 0.0 x10^3/uL (0.0-0.2) Sodium Level 142 mmol/L (136-145) Potassium Level 4.1 mmol/L (3.5-5.1) Chloride Level 105 mmol/L (98-107) Carbon Dioxide Level 31 mmol/L (21-32) Anion Gap 6 (6-14) Blood Urea Nitrogen 8 mg/dL (7-20) Creatinine 0.7 mg/dL (0.6-1.0) Estimated GFR (Cockcroft-Gault) 89.7 BUN/Creatinine Ratio 11 (6-20) Glucose Level 84 mg/dL (70-99) Calcium Level 8.5 mg/dL (8.5-10.1) Total Bilirubin 0.2 mg/dL (0.2-1.0) Aspartate Amino Transf (AST/SGOT) 18 U/L (15-37) Alanine Aminotransferase (ALT/SGPT) 16 U/L (14-59) Alkaline Phosphatase 66 U/L (46-116) Total Protein 5.8 g/dL (6.4-8.2) Albumin 3.0 g/dL (3.4-5.0) Albumin/Globulin Ratio 1.1 (1.0-1.7) Test 07/02/19 05:00 White Blood Count 3.5 x10^3/uL (4.0-11.0) Red Blood Count 2.74 x10^6/uL (3.50-5.40) Hemoglobin 8.4 g/dL (12.0-15.5) Hematocrit 25.3 % (36.0-47.0) Mean Corpuscular Volume 92 fL (79-100) Mean Corpuscular Hemoglobin 31 pg (25-35) Mean Corpuscular Hemoglobin Concent 33 g/dL (31-37) Red Cell Distribution Width 16.6 % (11.5-14.5) Platelet Count 232 x10^3/uL (140-400) Neutrophils (%) (Auto) 57 % (31-73) Lymphocytes (%) (Auto) 26 % (24-48) Monocytes (%) (Auto) 12 % (0-9) Eosinophils (%) (Auto) 4 % (0-3) Basophils (%) (Auto) 1 % (0-3) Neutrophils # (Auto) 2.0 x10^3/uL (1.8-7.7) Lymphocytes # (Auto) 0.9 x10^3/uL (1.0-4.8) Monocytes # (Auto) 0.4 x10^3/uL (0.0-1.1) Eosinophils # (Auto) 0.1 x10^3/uL (0.0-0.7) Basophils # (Auto) 0.0 x10^3/uL (0.0-0.2) Laboratory Tests Test 07/01/19 15:00 07/02/19 05:00 White Blood Count 3.8 x10^3/uL (4.0-11.0) 3.5 x10^3/uL (4.0-11.0) Red Blood Count 3.00 x10^6/uL (3.50-5.40) 2.74 x10^6/uL (3.50-5.40) Hemoglobin 9.2 g/dL (12.0-15.5) 8.4 g/dL (12.0-15.5) Hematocrit 27.6 % (36.0-47.0) 25.3 % (36.0-47.0) Mean Corpuscular Volume 92 fL (79-100) 92 fL (79-100) Mean Corpuscular Hemoglobin 31 pg (25-35) 31 pg (25-35) Mean Corpuscular Hemoglobin Concent 33 g/dL (31-37) 33 g/dL (31-37) Red Cell Distribution Width 16.7 % (11.5-14.5) 16.6 % (11.5-14.5) Platelet Count 250 x10^3/uL (140-400) 232 x10^3/uL (140-400) Neutrophils (%) (Auto) 57 % (31-73) Lymphocytes (%) (Auto) 26 % (24-48) Monocytes (%) (Auto) 12 % (0-9) Eosinophils (%) (Auto) 4 % (0-3) Basophils (%) (Auto) 1 % (0-3) Neutrophils # (Auto) 2.0 x10^3/uL (1.8-7.7) Lymphocytes # (Auto) 0.9 x10^3/uL (1.0-4.8) Monocytes # (Auto) 0.4 x10^3/uL (0.0-1.1) Eosinophils # (Auto) 0.1 x10^3/uL (0.0-0.7) Basophils # (Auto) 0.0 x10^3/uL (0.0-0.2) Microbiology 06/29/19 Urine Culture - Final, Complete 06/29/19 Urine Culture Result 1 (GEORGI) - Final, Complete Medications Current Medications Sodium Chloride 1,000 ml @ 1,000 mls/hr 1X ONCE IV Last administered on 06/29/19at 22:11; Start 06/29/19 at 22:00; Stop 06/29/19 at 22:59; Status DC Pantoprazole Sodium 80 mg/ Sodium Chloride 100 ml @ 10 mls/hr Q10H IV Last administered on 06/30/19at 21:21; Start 06/29/19 at 23:00; Stop 07/01/19 at 09:17; Status DC Pantoprazole Sodium (PROTONIX VIAL for IV PUSH) 80 mg 1X ONCE IVP Last administered on 06/29/19at 22:11; Start 06/29/19 at 22:30; Stop 06/29/19 at 22:31; Status DC Ondansetron HCl (Zofran) 4 mg 1X ONCE IV Last administered on 06/29/19at 22:11; Start 06/29/19 at 22:30; Stop 06/29/19 at 22:31; Status DC Hydromorphone HCl (Dilaudid) 1 mg 1X ONCE IV Last administered on 06/29/19at 22:28; Start 06/29/19 at 23:00; Stop 06/29/19 at 23:01; Status DC Hydromorphone HCl (Dilaudid) 1 mg 1X ONCE IV Last administered on 06/30/19at 00:33; Start 06/30/19 at 01:00; Stop 06/30/19 at 01:01; Status DC Ondansetron HCl (Zofran) 4 mg 1X ONCE IV Last administered on 06/30/19at 00:33; Start 06/30/19 at 01:00; Stop 06/30/19 at 01:01; Status DC Ondansetron HCl (Zofran) 4 mg PRN Q8HRS PRN IV NAUSEA/VOMITING 1ST CHOICE Last administered on 06/30/19at 22:48; Start 06/30/19 at 01:00; Stop 07/01/19 at 00:59; Status DC Sodium Chloride 1,000 ml @ 100 mls/hr 1X ONCE IV Last administered on 06/30/19at 01:30; Start 06/30/19 at 01:30; Stop 06/30/19 at 11:29; Status DC Hydromorphone HCl (Dilaudid) 1 mg PRN Q4HRS PRN IV SEVERE PAIN 7-10 Last administered on 06/30/19at 11:08; Start 06/30/19 at 01:15; Stop 06/30/19 at 13:26; Status DC Propofol 20 ml @ As Directed STK-MED ONCE IV ; Start 06/30/19 at 09:13; Stop 06/30/19 at 09:14; Status DC Sodium Chloride 1,000 ml @ 75 mls/hr [id number] IV Last administered on 06/30/19at 11:08; Start 06/30/19 at 10:45; Stop 06/30/19 at 11:21; Status DC Sucralfate (Carafate) 1 gm TIDBFRMEAL PO Last administered on 07/01/19at 16:29; Start 06/30/19 at 11:30 Levetiracetam (Keppra) 1,000 mg BID PO ; Start 06/30/19 at 12:00; Status Cancel Magnesium Oxide (Magnesium Oxide) 800 mg TID PO Last administered on 07/01/19at 20:52; Start 07/01/19 at 09:00 Potassium Chloride (Klor-Con) 40 meq BID PO Last administered on 07/01/19 20:52; Start 06/30/19 at 12:00 Ropinirole HCl (Requip) 2 mg TID PO Last administered on 07/01/19at 20:52; Start 06/30/19 at 14:00 Sertraline HCl (Zoloft) 150 mg DAILY PO ; Start 06/30/19 at 12:00 Acetaminophen (Tylenol) 650 mg Q6H PRN PO Headaches, Temp > 101.5'; Start 06/30/19 at 11:15 Lorazepam (Ativan Inj) 0.5 mg PRN Q6HRS PRN IV ANXIETY / AGITATION Last administered on 07/02/19 03:30; Start 06/30/19 at 11:15 Ondansetron HCl (Zofran) 4 mg PRN Q6HRS PRN IV NAUSEA/VOMITING Last administered on 07/02/19 03:30; Start 06/30/19 at 11:15 Zolpidem Tartrate (Ambien) 5 mg PRN QHS PRN PO INSOMNIA, MAY REPEAT IN 1HR; Start 06/30/19 at 11:15 Info (Icu Electrolyte Protocol) 1 ea DAILY MC Last administered on 07/01/19 09:00; Start 07/01/19 at 09:00 Sodium Chloride (Normal Saline Flush) 3 ml QSHIFT PRN IV AFTER MEDS AND BLOOD DRAWS; Start 06/30/19 at 11:15 Potassium Chloride/Sodium Chloride 1,000 ml @ 100 mls/hr Q10H IV Last administered on 07/02/19 08:23; Start 06/30/19 at 11:04 Fentanyl Citrate (Fentanyl 2ml Vial) 50 mcg PRN Q1HR PRN IV SEVERE PAIN 7-10; Start 06/30/19 at 11:15 Docusate Sodium (Colace) 100 mg BID PO Last administered on 07/01/19at 20:52; Start 06/30/19 at 21:00 Bisacodyl (Dulcolax Supp) 10 mg PRN DAILY PRN [place] CONSTIPATION; Start 06/30/19 at 11:15 Ceftriaxone Sodium (Rocephin) 1 gm Q24H IVP Last administered on 07/01/19 11:52; Start 06/30/19 at 12:00 Levetiracetam 1000 mg/Dextrose 110 ml @ 440 mls/hr Q12HR IV Last administered on 07/02/19 08:24; Start 06/30/19 at 12:00 Zinc Acetate/ Diphenhydramine (Benadryl Topical) 1 kumar PRN QID PRN TP ITCHING; Start 06/30/19 at 12:30; Stop 06/30/19 at 13:26; Status DC Hydromorphone HCl (Dilaudid) 0.5 mg PRN Q2HRS PRN IV SEVERE PAIN 7-10 Last administered on 07/02/19at 07:46; Start 06/30/19 at 13:30 Diphenhydramine HCl (Benadryl) 25 mg PRN Q6HRS PRN IVP ITCHING Last administered on 07/02/19at 05:38; Start 06/30/19 at 13:30 Potassium Chloride/Water 50 ml @ 50 mls/hr Q1H IV Last administered on 06/30/19at 16:56; Start 06/30/19 at 15:00; Stop 06/30/19 at 16:59; Status DC Magnesium Sulfate 100 ml @ 50 mls/hr DAILY IV ; Start 07/01/19 at 09:00; Stop 06/30/19 at 15:53; Status DC Magnesium Sulfate 100 ml @ 25 mls/hr 1X ONCE IV Last administered on 06/30/19at 15:43; Start 06/30/19 at 15:15; Stop 06/30/19 at 19:14; Status DC Magnesium Sulfate 50 ml @ 25 mls/hr 1X ONCE IV Last administered on 07/01/19at 08:41; Start 07/01/19 at 08:15; Stop 07/01/19 at 10:14; Status DC Pantoprazole Sodium (PROTONIX VIAL for IV PUSH) 40 mg 1X ONCE IVP Last administered on 07/01/19at 09:46; Start 07/01/19 at 09:30; Stop 07/01/19 at 09:31; Status DC Pantoprazole Sodium (Protonix) 40 mg DAILYAC PO ; Start 07/02/19 at 07:30; Stop 07/01/19 at 11:30; Status DC Pantoprazole Sodium (PROTONIX VIAL for IV PUSH) 40 mg [id number] IVP Last administered on 07/02/19at 08:24; Start 07/01/19 at 18:00 Lactobacillus Rhamnosus (Culturelle) 1 cap BID PO Last administered on 07/01/19at 20:51; Start 07/01/19 at 21:00 Ondansetron HCl (Zofran) 4 mg PRN Q4HRS PRN IVP NAUSEA/VOMITING; Start 07/02/19 at 03:15 Promethazine HCl (Phenergan) 6.25 mg PRN Q6HRS PRN PO NAUSEA/VOMITING; Start 07/02/19 at 03:15 Active Scripts Active Reported Zoloft (Sertraline Hcl) 100 Mg Tablet 150 Mg PO DAILY Requip (Ropinirole Hcl) 3 Mg Tablet 2 Mg PO TID Carafate (Sucralfate) 1 Gm Tablet 1 Gm PO TID Pepcid (Famotidine) 20 Mg Tablet 20 Mg PO BID Keppra (Levetiracetam) 1,000 Mg Tablet 1,000 Mg PO BID Magnesium (Magnesium Oxide) 500 Mg Capsule 800 Mg PO TID Klor-Con 10 (Potassium Chloride) 10 Meq Tablet.er 40 Meq PO BID Vitals/I & O Vital Sign - Last 24 Hours 07/01/19 07/01/19 07/01/19 07/01/19 09:47 10:37 11:00 11:19 Temp 97.9 97.5 97.9 97.5 Pulse 85 69 Resp 16 16 16 B/P (MAP) 100/58 (72) 124/54 (77) Pulse Ox 94 94 94 99 O2 Delivery Room Air Room Air Room Air Room Air 07/01/19 07/01/19 07/01/19 07/01/19 11:55 12:25 15:00 16:35 Temp 98.3 98.3 Pulse 82 Resp 14 16 18 16 B/P (MAP) 109/60 (76) Pulse Ox 99 93 93 93 O2 Delivery Room Air Room Air Room Air Room Air O2 Flow Rate 1.5 1.5 07/01/19 07/01/19 07/01/19 07/01/19 17:05 18:43 19:00 19:13 Temp 98.3 98.3 Pulse 92 Resp 18 18 18 18 B/P (MAP) 101/64 (76) Pulse Ox 93 93 96 94 O2 Delivery Room Air Room Air Room Air Room Air O2 Flow Rate 1.5 07/01/19 07/01/19 07/01/19 07/01/19 20:00 20:44 21:14 22:54 Resp 20 20 18 Pulse Ox 93 94 93 O2 Delivery Room Air Room Air Room Air Room Air O2 Flow Rate 1.5 1.5 1.5 07/01/19 07/01/19 07/02/19 07/02/19 23:00 23:24 01:09 01:39 Temp 98.6 98.6 Pulse 78 Resp 18 18 18 18 B/P (MAP) 107/48 (67) Pulse Ox 94 94 94 94 O2 Delivery Room Air Room Air Room Air Room Air O2 Flow Rate 1.5 1.5 1.5 07/02/19 07/02/19 07/02/19 07/02/19 03:00 03:03 03:33 05:25 Temp 98.2 98.2 Pulse 97 Resp 18 20 16 20 B/P (MAP) 112/71 (85) Pulse Ox 99 94 94 94 O2 Delivery Room Air Room Air Nasal Cannula Room Air O2 Flow Rate 1.5 1.5 1.5 07/02/19 05:55 Resp 16 Pulse Ox 94 O2 Delivery Room Air O2 Flow Rate 1.5 Intake and Output 07/01/19 07/01/19 07/02/19 15:00 23:00 07:00 Intake Total 1384.85 ml 1230 ml Output Total 275 ml Balance 1109.85 ml 1230 ml DIANNA CASH MD Jul 02, 2019 09:27
--- NOTE | 2019-07-02 09:53 | PDOC ---
SURGICAL PROGRESS NOTE Subjective Pt with c/o small amount of hematemesis overnight, some c/o LUQ pain Vital Signs Vital Signs Date Time Temp Pulse Resp B/P (MAP) Pulse Ox O2 Delivery O2 Flow Rate FiO2 07/02/19 05:55 16 94 Room Air 1.5 07/02/19 03:00 98.2 97 112/71 (85) 98.2 I&O Intake and Output 07/02/19 07:00 Intake Total 2614.85 ml Output Total 275 ml Balance 2339.85 ml Intake Oral 356 ml IV Total 2258.85 ml Output Urine Total 275 ml # Voids 3 General: Alert, Oriented X3, Cooperative, mild distress Abdomen: Soft, Other (mild TTP LUQ) Labs Laboratory Tests Test 06/30/19 13:20 06/30/19 22:00 07/01/19 04:20 07/01/19 15:00 White Blood Count 3.5 x10^3/uL (4.0-11.0) 3.0 x10^3/uL (4.0-11.0) 2.8 x10^3/uL (4.0-11.0) 3.8 x10^3/uL (4.0-11.0) Red Blood Count 3.04 x10^6/uL (3.50-5.40) 2.92 x10^6/uL (3.50-5.40) 3.05 x10^6/uL (3.50-5.40) 3.00 x10^6/uL (3.50-5.40) Hemoglobin 9.1 g/dL (12.0-15.5) 9.0 g/dL (12.0-15.5) 9.2 g/dL (12.0-15.5) 9.2 g/dL (12.0-15.5) Hematocrit 27.9 % (36.0-47.0) 26.8 % (36.0-47.0) 28.2 % (36.0-47.0) 27.6 % (36.0-47.0) Mean Corpuscular Volume 92 fL (79-100) 92 fL (79-100) 93 fL (79-100) 92 fL (79-100) Mean Corpuscular Hemoglobin 30 pg (25-35) 31 pg (25-35) 30 pg (25-35) 31 pg (25-35) Mean Corpuscular Hemoglobin Concent 33 g/dL (31-37) 34 g/dL (31-37) 33 g/dL (31-37) 33 g/dL (31-37) Red Cell Distribution Width 16.5 % (11.5-14.5) 16.8 % (11.5-14.5) 16.8 % (11.5-14.5) 16.7 % (11.5-14.5) Platelet Count 230 x10^3/uL (140-400) 235 x10^3/uL (140-400) 234 x10^3/uL (140-400) 250 x10^3/uL (140-400) Magnesium Level 1.2 mg/dL (1.8-2.4) 1.8 mg/dL (1.8-2.4) Lipase 156 U/L (73-393) Neutrophils (%) (Auto) 52 % (31-73) Lymphocytes (%) (Auto) 31 % (24-48) Monocytes (%) (Auto) 12 % (0-9) Eosinophils (%) (Auto) 5 % (0-3) Basophils (%) (Auto) 1 % (0-3) Neutrophils # (Auto) 1.5 x10^3/uL (1.8-7.7) Lymphocytes # (Auto) 0.9 x10^3/uL (1.0-4.8) Monocytes # (Auto) 0.3 x10^3/uL (0.0-1.1) Eosinophils # (Auto) 0.1 x10^3/uL (0.0-0.7) Basophils # (Auto) 0.0 x10^3/uL (0.0-0.2) Sodium Level 142 mmol/L (136-145) Potassium Level 4.1 mmol/L (3.5-5.1) Chloride Level 105 mmol/L (98-107) Carbon Dioxide Level 31 mmol/L (21-32) Anion Gap 6 (6-14) Blood Urea Nitrogen 8 mg/dL (7-20) Creatinine 0.7 mg/dL (0.6-1.0) Estimated GFR (Cockcroft-Gault) 89.7 BUN/Creatinine Ratio 11 (6-20) Glucose Level 84 mg/dL (70-99) Calcium Level 8.5 mg/dL (8.5-10.1) Total Bilirubin 0.2 mg/dL (0.2-1.0) Aspartate Amino Transf (AST/SGOT) 18 U/L (15-37) Alanine Aminotransferase (ALT/SGPT) 16 U/L (14-59) Alkaline Phosphatase 66 U/L (46-116) Total Protein 5.8 g/dL (6.4-8.2) Albumin 3.0 g/dL (3.4-5.0) Albumin/Globulin Ratio 1.1 (1.0-1.7) Test 07/02/19 05:00 White Blood Count 3.5 x10^3/uL (4.0-11.0) Red Blood Count 2.74 x10^6/uL (3.50-5.40) Hemoglobin 8.4 g/dL (12.0-15.5) Hematocrit 25.3 % (36.0-47.0) Mean Corpuscular Volume 92 fL (79-100) Mean Corpuscular Hemoglobin 31 pg (25-35) Mean Corpuscular Hemoglobin Concent 33 g/dL (31-37) Red Cell Distribution Width 16.6 % (11.5-14.5) Platelet Count 232 x10^3/uL (140-400) Neutrophils (%) (Auto) 57 % (31-73) Lymphocytes (%) (Auto) 26 % (24-48) Monocytes (%) (Auto) 12 % (0-9) Eosinophils (%) (Auto) 4 % (0-3) Basophils (%) (Auto) 1 % (0-3) Neutrophils # (Auto) 2.0 x10^3/uL (1.8-7.7) Lymphocytes # (Auto) 0.9 x10^3/uL (1.0-4.8) Monocytes # (Auto) 0.4 x10^3/uL (0.0-1.1) Eosinophils # (Auto) 0.1 x10^3/uL (0.0-0.7) Basophils # (Auto) 0.0 x10^3/uL (0.0-0.2) Laboratory Tests Test 07/01/19 15:00 07/02/19 05:00 White Blood Count 3.8 x10^3/uL (4.0-11.0) 3.5 x10^3/uL (4.0-11.0) Red Blood Count 3.00 x10^6/uL (3.50-5.40) 2.74 x10^6/uL (3.50-5.40) Hemoglobin 9.2 g/dL (12.0-15.5) 8.4 g/dL (12.0-15.5) Hematocrit 27.6 % (36.0-47.0) 25.3 % (36.0-47.0) Mean Corpuscular Volume 92 fL (79-100) 92 fL (79-100) Mean Corpuscular Hemoglobin 31 pg (25-35) 31 pg (25-35) Mean Corpuscular Hemoglobin Concent 33 g/dL (31-37) 33 g/dL (31-37) Red Cell Distribution Width 16.7 % (11.5-14.5) 16.6 % (11.5-14.5) Platelet Count 250 x10^3/uL (140-400) 232 x10^3/uL (140-400) Neutrophils (%) (Auto) 57 % (31-73) Lymphocytes (%) (Auto) 26 % (24-48) Monocytes (%) (Auto) 12 % (0-9) Eosinophils (%) (Auto) 4 % (0-3) Basophils (%) (Auto) 1 % (0-3) Neutrophils # (Auto) 2.0 x10^3/uL (1.8-7.7) Lymphocytes # (Auto) 0.9 x10^3/uL (1.0-4.8) Monocytes # (Auto) 0.4 x10^3/uL (0.0-1.1) Eosinophils # (Auto) 0.1 x10^3/uL (0.0-0.7) Basophils # (Auto) 0.0 x10^3/uL (0.0-0.2) Problem List UGI bleed appears slow at this time. Favor continued PPI and supportive care. Would like to avoid operative invention, given concern for extensive scaring, significant motility issues. Surgical intervention would most likely involve antrectomy and reconstruction with control of bleeding. NAOMI,RITIKA J MD Jul 02, 2019 09:53
[2019-07-02 11:00] VITALS: BP 130/61
[2019-07-02] MEDS: cefTRIAXone IV Push 1 GM VIAL. IVP SCH (12:00)
--- NOTE | 2019-07-02 12:34 | PDOC ---
G I PROGRESS NOTE Reason for Follow-up Hematemesis Subjective No further vomiting Physical Exam Lungs clear CV S1 S2 BD +BS, soft, nontender Review of Relevant I have reviewed the following items brandon (where applicable) has been applied. Labs Laboratory Tests Test 06/30/19 13:20 06/30/19 22:00 07/01/19 04:20 07/01/19 15:00 White Blood Count 3.5 x10^3/uL (4.0-11.0) 3.0 x10^3/uL (4.0-11.0) 2.8 x10^3/uL (4.0-11.0) 3.8 x10^3/uL (4.0-11.0) Red Blood Count 3.04 x10^6/uL (3.50-5.40) 2.92 x10^6/uL (3.50-5.40) 3.05 x10^6/uL (3.50-5.40) 3.00 x10^6/uL (3.50-5.40) Hemoglobin 9.1 g/dL (12.0-15.5) 9.0 g/dL (12.0-15.5) 9.2 g/dL (12.0-15.5) 9.2 g/dL (12.0-15.5) Hematocrit 27.9 % (36.0-47.0) 26.8 % (36.0-47.0) 28.2 % (36.0-47.0) 27.6 % (36.0-47.0) Mean Corpuscular Volume 92 fL (79-100) 92 fL (79-100) 93 fL (79-100) 92 fL (79-100) Mean Corpuscular Hemoglobin 30 pg (25-35) 31 pg (25-35) 30 pg (25-35) 31 pg (25-35) Mean Corpuscular Hemoglobin Concent 33 g/dL (31-37) 34 g/dL (31-37) 33 g/dL (31-37) 33 g/dL (31-37) Red Cell Distribution Width 16.5 % (11.5-14.5) 16.8 % (11.5-14.5) 16.8 % (11.5-14.5) 16.7 % (11.5-14.5) Platelet Count 230 x10^3/uL (140-400) 235 x10^3/uL (140-400) 234 x10^3/uL (140-400) 250 x10^3/uL (140-400) Magnesium Level 1.2 mg/dL (1.8-2.4) 1.8 mg/dL (1.8-2.4) Lipase 156 U/L (73-393) Neutrophils (%) (Auto) 52 % (31-73) Lymphocytes (%) (Auto) 31 % (24-48) Monocytes (%) (Auto) 12 % (0-9) Eosinophils (%) (Auto) 5 % (0-3) Basophils (%) (Auto) 1 % (0-3) Neutrophils # (Auto) 1.5 x10^3/uL (1.8-7.7) Lymphocytes # (Auto) 0.9 x10^3/uL (1.0-4.8) Monocytes # (Auto) 0.3 x10^3/uL (0.0-1.1) Eosinophils # (Auto) 0.1 x10^3/uL (0.0-0.7) Basophils # (Auto) 0.0 x10^3/uL (0.0-0.2) Sodium Level 142 mmol/L (136-145) Potassium Level 4.1 mmol/L (3.5-5.1) Chloride Level 105 mmol/L (98-107) Carbon Dioxide Level 31 mmol/L (21-32) Anion Gap 6 (6-14) Blood Urea Nitrogen 8 mg/dL (7-20) Creatinine 0.7 mg/dL (0.6-1.0) Estimated GFR (Cockcroft-Gault) 89.7 BUN/Creatinine Ratio 11 (6-20) Glucose Level 84 mg/dL (70-99) Calcium Level 8.5 mg/dL (8.5-10.1) Total Bilirubin 0.2 mg/dL (0.2-1.0) Aspartate Amino Transf (AST/SGOT) 18 U/L (15-37) Alanine Aminotransferase (ALT/SGPT) 16 U/L (14-59) Alkaline Phosphatase 66 U/L (46-116) Total Protein 5.8 g/dL (6.4-8.2) Albumin 3.0 g/dL (3.4-5.0) Albumin/Globulin Ratio 1.1 (1.0-1.7) Test 07/02/19 05:00 White Blood Count 3.5 x10^3/uL (4.0-11.0) Red Blood Count 2.74 x10^6/uL (3.50-5.40) Hemoglobin 8.4 g/dL (12.0-15.5) Hematocrit 25.3 % (36.0-47.0) Mean Corpuscular Volume 92 fL (79-100) Mean Corpuscular Hemoglobin 31 pg (25-35) Mean Corpuscular Hemoglobin Concent 33 g/dL (31-37) Red Cell Distribution Width 16.6 % (11.5-14.5) Platelet Count 232 x10^3/uL (140-400) Neutrophils (%) (Auto) 57 % (31-73) Lymphocytes (%) (Auto) 26 % (24-48) Monocytes (%) (Auto) 12 % (0-9) Eosinophils (%) (Auto) 4 % (0-3) Basophils (%) (Auto) 1 % (0-3) Neutrophils # (Auto) 2.0 x10^3/uL (1.8-7.7) Lymphocytes # (Auto) 0.9 x10^3/uL (1.0-4.8) Monocytes # (Auto) 0.4 x10^3/uL (0.0-1.1) Eosinophils # (Auto) 0.1 x10^3/uL (0.0-0.7) Basophils # (Auto) 0.0 x10^3/uL (0.0-0.2) Laboratory Tests Test 07/01/19 15:00 07/02/19 05:00 White Blood Count 3.8 x10^3/uL (4.0-11.0) 3.5 x10^3/uL (4.0-11.0) Red Blood Count 3.00 x10^6/uL (3.50-5.40) 2.74 x10^6/uL (3.50-5.40) Hemoglobin 9.2 g/dL (12.0-15.5) 8.4 g/dL (12.0-15.5) Hematocrit 27.6 % (36.0-47.0) 25.3 % (36.0-47.0) Mean Corpuscular Volume 92 fL (79-100) 92 fL (79-100) Mean Corpuscular Hemoglobin 31 pg (25-35) 31 pg (25-35) Mean Corpuscular Hemoglobin Concent 33 g/dL (31-37) 33 g/dL (31-37) Red Cell Distribution Width 16.7 % (11.5-14.5) 16.6 % (11.5-14.5) Platelet Count 250 x10^3/uL (140-400) 232 x10^3/uL (140-400) Neutrophils (%) (Auto) 57 % (31-73) Lymphocytes (%) (Auto) 26 % (24-48) Monocytes (%) (Auto) 12 % (0-9) Eosinophils (%) (Auto) 4 % (0-3) Basophils (%) (Auto) 1 % (0-3) Neutrophils # (Auto) 2.0 x10^3/uL (1.8-7.7) Lymphocytes # (Auto) 0.9 x10^3/uL (1.0-4.8) Monocytes # (Auto) 0.4 x10^3/uL (0.0-1.1) Eosinophils # (Auto) 0.1 x10^3/uL (0.0-0.7) Basophils # (Auto) 0.0 x10^3/uL (0.0-0.2) Microbiology 06/29/19 Urine Culture - Final, Complete 06/29/19 Urine Culture Result 1 (GEORGI) - Final, Complete Medications Current Medications Sodium Chloride 1,000 ml @ 1,000 mls/hr 1X ONCE IV Last administered on 06/29/19at 22:11; Start 06/29/19 at 22:00; Stop 06/29/19 at 22:59; Status DC Pantoprazole Sodium 80 mg/ Sodium Chloride 100 ml @ 10 mls/hr Q10H IV Last administered on 06/30/19at 21:21; Start 06/29/19 at 23:00; Stop 07/01/19 at 09:17; Status DC Pantoprazole Sodium (PROTONIX VIAL for IV PUSH) 80 mg 1X ONCE IVP Last administered on 06/29/19at 22:11; Start 06/29/19 at 22:30; Stop 06/29/19 at 22 :31; Status DC Ondansetron HCl (Zofran) 4 mg 1X ONCE IV Last administered on 06/29/19at 22:11; Start 06/29/19 at 22:30; Stop 06/29/19 at 22:31; Status DC Hydromorphone HCl (Dilaudid) 1 mg 1X ONCE IV Last administered on 06/29/19at 22:28; Start 06/29/19 at 23:00; Stop 06/29/19 at 23:01; Status DC Hydromorphone HCl (Dilaudid) 1 mg 1X ONCE IV Last administered on 06/30/19at 00:33; Start 06/30/19 at 01:00; Stop 06/30/19 at 01:01; Status DC Ondansetron HCl (Zofran) 4 mg 1X ONCE IV Last administered on 06/30/19at 00:33; Start 06/30/19 at 01:00; Stop 06/30/19 at 01:01; Status DC Ondansetron HCl (Zofran) 4 mg PRN Q8HRS PRN IV NAUSEA/VOMITING 1ST CHOICE Last administered on 06/30/19at 22:48; Start 06/30/19 at 01:00; Stop 07/01/19 at 00:59; Status DC Sodium Chloride 1,000 ml @ 100 mls/hr 1X ONCE IV Last administered on 06/30/19at 01:30; Start 06/30/19 at 01:30; Stop 06/30/19 at 11:29; Status DC Hydromorphone HCl (Dilaudid) 1 mg PRN Q4HRS PRN IV SEVERE PAIN 7-10 Last administered on 06/30/19at 11:08; Start 06/30/19 at 01:15; Stop 06/30/19 at 13:26; Status DC Propofol 20 ml @ As Directed STK-MED ONCE IV ; Start 06/30/19 at 09:13; Stop 06/30/19 at 09:14; Status DC Sodium Chloride 1,000 ml @ 75 mls/hr [id number] IV Last administered on 1 08/31/18at 11:08; Start 06/30/19 at 10:45; Stop 06/30/19 at 11:21; Status DC Sucralfate (Carafate) 1 gm TIDBFRMEAL PO Last administered on 07/01/19at 16:29; Start 06/30/19 at 11:30 Levetiracetam (Keppra) 1,000 mg BID PO ; Start 06/30/19 at 12:00; Status Cancel Magnesium Oxide (Magnesium Oxide) 800 mg TID PO Last administered on 07/01/19 20:52; Start 07/01/19 at 09:00 Potassium Chloride (Klor-Con) 40 meq BID PO Last administered on 07/01/19 20:52; Start 06/30/19 at 12:00 Ropinirole HCl (Requip) 2 mg TID PO Last administered on 07/01/19 20:52; Start 06/30/19 at 14:00 Sertraline HCl (Zoloft) 150 mg DAILY PO ; Start 06/30/19 at 12:00 Acetaminophen (Tylenol) 650 mg Q6H PRN PO Headaches, Temp > 101.5'; Start 06/30/19 at 11:15 Lorazepam (Ativan Inj) 0.5 mg PRN Q6HRS PRN IV ANXIETY / AGITATION Last administered on 07/02/19 03:30; Start 06/30/19 at 11:15 Ondansetron HCl (Zofran) 4 mg PRN Q6HRS PRN IV NAUSEA/VOMITING Last administered on 07/02/19 10:05; Start 06/30/19 at 11:15; Stop 07/02/19 at 11:18; Status DC Zolpidem Tartrate (Ambien) 5 mg PRN QHS PRN PO INSOMNIA, MAY REPEAT IN 1HR; Start 06/30/19 at 11:15 Info (Icu Electrolyte Protocol) 1 ea DAILY MC Last administered on 07/01/19 09:00; Start 07/01/19 at 09:00 Sodium Chloride (Normal Saline Flush) 3 ml QSHIFT PRN IV AFTER MEDS AND BLOOD DRAWS; Start 06/30/19 at 11:15 Potassium Chloride/Sodium Chloride 1,000 ml @ 100 mls/hr Q10H IV Last administered on 07/02/19 08:23; Start 06/30/19 at 11:04 Fentanyl Citrate (Fentanyl 2ml Vial) 50 mcg PRN Q1HR PRN IV MODERATE PAIN; Start 06/30/19 at 11:15 Docusate Sodium (Colace) 100 mg BID PO Last administered on 07/01/19at 20:52; Start 06/30/19 at 21:00 Bisacodyl (Dulcolax Supp) 10 mg PRN DAILY PRN [place] CONSTIPATION; Start 06/30/19 at 11:15 Ceftriaxone Sodium (Rocephin) 1 gm Q24H IVP Last administered on 07/01/19at 11:52; Start 06/30/19 at 12:00 Levetiracetam 1000 mg/Dextrose 110 ml @ 440 mls/hr Q12HR IV Last administered on 07/02/19at 08:24; Start 06/30/19 at 12:00 Zinc Acetate/ Diphenhydramine (Benadryl Topical) 1 kumar PRN QID PRN TP ITCHING; Start 06/30/19 at 12:30; Stop 06/30/19 at 13:26; Status DC Hydromorphone HCl (Dilaudid) 0.5 mg PRN Q2HRS PRN IV SEVERE PAIN 7-10 Last administered on 07/02/19at 12:12; Start 06/30/19 at 13:30 Diphenhydramine HCl (Benadryl) 25 mg PRN Q6HRS PRN IVP ITCHING Last administered on 07/02/19at 12:11; Start 06/30/19 at 13:30 Potassium Chloride/Water 50 ml @ 50 mls/hr Q1H IV Last administered on 06/30/19at 16:56; Start 06/30/19 at 15:00; Stop 06/30/19 at 16:59; Status DC Magnesium Sulfate 100 ml @ 50 mls/hr DAILY IV ; Start 07/01/19 at 09:00; Stop 06/30/19 at 15:53; Status DC Magnesium Sulfate 100 ml @ 25 mls/hr 1X ONCE IV Last administered on 06/30/19at 15:43; Start 06/30/19 at 15:15; Stop 06/30/19 at 19:14; Status DC Magnesium Sulfate 50 ml @ 25 mls/hr 1X ONCE IV Last administered on 07/01/19at 08:41; Start 07/01/19 at 08:15; Stop 07/01/19 at 10:14; Status DC Pantoprazole Sodium (PROTONIX VIAL for IV PUSH) 40 mg 1X ONCE IVP Last administered on 07/01/19at 09:46; Start 07/01/19 at 09:30; Stop 07/01/19 at 09:31; Status DC Pantoprazole Sodium (Protonix) 40 mg DAILYAC PO ; Start 07/02/19 at 07:30; Stop 07/01/19 at 11:30; Status DC Pantoprazole Sodium (PROTONIX VIAL for IV PUSH) 40 mg [id number] IVP Last administered on 07/02/19at 08:24; Start 07/01/19 at 18:00 Lactobacillus Rhamnosus (Culturelle) 1 cap BID PO Last administered on 07/01/19at 20:51; Start 07/01/19 at 21:00 Ondansetron HCl (Zofran) 4 mg PRN Q4HRS PRN IVP NAUSEA/VOMITING; Start 07/02/19 at 03:15 Promethazine HCl (Phenergan) 6.25 mg PRN Q6HRS PRN PO NAUSEA/VOMITING; Start 07/02/19 at 03:15 Active Scripts Active Reported Zoloft (Sertraline Hcl) 100 Mg Tablet 150 Mg PO DAILY Requip (Ropinirole Hcl) 3 Mg Tablet 2 Mg PO TID Carafate (Sucralfate) 1 Gm Tablet 1 Gm PO TID Pepcid (Famotidine) 20 Mg Tablet 20 Mg PO BID Keppra (Levetiracetam) 1,000 Mg Tablet 1,000 Mg PO BID Magnesium (Magnesium Oxide) 500 Mg Capsule 800 Mg PO TID Klor-Con 10 (Potassium Chloride) 10 Meq Tablet.er 40 Meq PO BID Vitals/I & O Vital Sign - Last 24 Hours 07/01/19 07/01/19 07/01/19 07/01/19 15:00 16:35 17:05 18:43 Temp 98.3 98.3 Pulse 82 Resp 18 16 18 18 B/P (MAP) 109/60 (76) Pulse Ox 93 93 93 93 O2 Delivery Room Air Room Air Room Air Room Air 12/12/19 12/12/19 12/12/19 12/12/19 19:00 19:13 20:00 20:44 Temp 98.3 98.3 Pulse 92 Resp 18 18 20 B/P (MAP) 101/64 (76) Pulse Ox 96 94 93 O2 Delivery Room Air Room Air Room Air Room Air O2 Flow Rate 1.5 1.5 07/01/19 07/01/19 07/01/19 07/01/19 21:14 22:54 23:00 23:24 Temp 98.6 98.6 Pulse 78 Resp 20 18 18 18 B/P (MAP) 107/48 (67) Pulse Ox 94 93 94 94 O2 Delivery Room Air Room Air Room Air Room Air O2 Flow Rate 1.5 1.5 1.5 07/02/19 07/02/19 07/02/19 07/02/19 01:09 01:39 03:00 03:03 Temp 98.2 98.2 Pulse 97 Resp 18 18 18 20 B/P (MAP) 112/71 (85) Pulse Ox 94 94 99 94 O2 Delivery Room Air Room Air Room Air Room Air O2 Flow Rate 1.5 1.5 1.5 07/02/19 07/02/19 07/02/19 07/02/19 03:33 05:25 05:55 07:00 Temp 98.4 98.4 Pulse 89 Resp 16 20 16 16 B/P (MAP) 120/63 (82) Pulse Ox 94 94 94 96 O2 Delivery Nasal Cannula Room Air Room Air Room Air O2 Flow Rate 1.5 1.5 1.5 07/02/19 07/02/19 07/02/19 07/02/19 08:00 10:05 11:00 12:13 Temp 97.6 97.6 Pulse 79 Resp 16 B/P (MAP) 130/61 (84) Pulse Ox 96 98 96 O2 Delivery Room Air Room Air Room Air Room Air O2 Flow Rate 1.5 1.5 1.5 Intake and Output 07/01/19 07/01/19 07/02/19 15:00 23:00 07:00 Intake Total 1384.85 ml 1230 ml Output Total 275 ml Balance 1109.85 ml 1230 ml Problem List Hematemsis- s/p embolization/endo-clips, surgical repair at advance d gastric surgery recommended if she rebleeds WILLARD KHAN MD Jul 02, 2019 12:34
[2019-07-02 15:00] VITALS: BP 113/66
--- NOTE | 2019-07-02 15:41 | DS ---
DATE OF DISCHARGE: 07/02/2019 ADMISSION DIAGNOSIS: Gastrointestinal bleed. DISCHARGE DIAGNOSIS: Resolving gastrointestinal bleed. HOSPITAL COURSE: The patient is a pleasant 49-year-old female who presented with a GI bleed. Her hemoglobin has been trending between 9 and 8. PHYSICAL EXAMINATION: GENERAL: Today, I saw her and examined her. HEART: Tones were normal. LUNGS: Clear. ABDOMEN: Soft. EXTREMITIES: No edema. I called Dr. Dan. 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 I certainly agree and appreciate his input. I also called Dr. Linder. He states that he did apparently see a coil in one of the gastric arteries. She also has some clips. The patient denies ever getting any of this stuff done. Dr. Dan states that he knows that she had been admitted to [facility] within the past week or so and so the patient does not even admit to that either. We are not sure where she had the coils and clips done, but basically the other consultants want her to get back to her doctor if possible. I told the nurse to check another hemoglobin this afternoon. If she is stable, we will go ahead and get her out and have her see the other doctors if she had these procedures done. DISPOSITION: Home. ACTIVITY: As tolerated. DIET: Low sodium. MEDICATIONS: Please see MRAD. TOTAL TIME: 32 minutes. BRIELLEL Asya HAJI DO DR: BENJA/kristina JOB#: [id number] / [id number]
[2019-07-02 15:42] LABS: HEMOGLOBIN 8.4 g/dL (12.0-15.5)
--- NOTE | 2019-07-02 16:10 | NUR ---
SW following. Chart reviewed, discussed with RN. Surg here has declined to do pt surgery, informing pt to return to where she had the surgery last done. Pt advised this was in [place] years ago. RN received medical records from [facility] in [place] with pt having surgery a few weeks ago. RN advised pt will be discharged after 1500 H&H if the results are okay. Pt requested to see SW. KATTY met with pt, pt reported she is stuck here as her friend she came here with went back to [place], [place] and her fiance is in [facility] and wont be done there for a while. Pt reported she has a disabled aunt in [place], [place] who cant drive but pt wants to go there. Pt wanted SW to find out how far [facility] will take pt, SW queried what will pt do from there, catch a bus? Pt refused to take bus transportation due to "buses taking 2-3 days to cross a state". Pt reported she would take an "uber or something" from wherever the transportation drops her. Jonatan ALANIZ quality assurance supervisor trim advised KATTY, transportation can take pt 10 miles. KATTY notified RN. KATTY will continue to follow.
[2019-07-02] MEDS ORDERED: HEPARIN PF 500 UNIT/5 ML DISP.SYRIN. IVP ONE (16:45)
--- NOTE | 2019-07-02 17:19 | NUR ---
Discharge Note: [facility] Discharge instructions and discharge home medications reviewed with Patient and a copy given. All questions have been answered and understanding verbalized. The following instructions and handouts were given: GI Bleed Discontinued lines and drains: Port A Cath intact. Patient discharged to Home or Self Care with Self via Ambulated
== END 2019-07-02 17:21 | disposition home or self-care (01) | DRG 379 ==
LOC: ER 21:01 → ED HOLD 22:50 → 1 WEST ICU 06-30 10:50 → 5 SOUTH 07-01 11:23
PROVIDERS: ADMIT Internal Medicine; ATTEND Internal Medicine
PROC: 0DJ08ZZ Inspection of Upper Intestinal Tract, Via Natural or Artificial Opening Endoscopic (ICD-10-PCS; principal; 2019-06-30 09:00)
DX: K25.4 Chronic or unspecified gastric ulcer with hemorrhage (principal); K92.0 Hematemesis; Z90.3 Acquired absence of stomach [part of]; E83.42 Hypomagnesemia; Z87.11 Personal history of peptic ulcer disease; G25.81 Restless legs syndrome; I49.8 Other specified cardiac arrhythmias; N83.209 Unspecified ovarian cyst, unspecified side; Z82.49 Family history of ischemic heart disease and other diseases of the circulatory system; Z87.19 Personal history of other diseases of the digestive system; K21.9 Gastro-esophageal reflux disease without esophagitis; Z86.73 Personal history of transient ischemic attack (TIA), and cerebral infarction without residual deficits; Z88.2 Allergy status to sulfonamides; Z88.8 Allergy status to other drugs, medicaments and biological substances; Z91.048 Other nonmedicinal substance allergy status; D64.9 Anemia, unspecified
CPT/HCPCS: 36415; 43235; 71045; 74176; 80053; 81001; 82271; 83690; 83735; 85014; 85018; 85025; 85027; 86850; 86900; 86901; 87086; 93005; C9113; J0696; J1170; J1200; J1953; J2060; J2405; J2704; J3475; J3480; J7030; 99285-25; G0378